=== PATIENT | female | born 1965 | race Caucasian/White ===

== ENCOUNTER 2020-08-21 10:21 | Observation (INO) | payer BC ==
[~2020-08-21] VITALS: Ht 160 cm; Wt 74.8 kg
--- NOTE | 2020-08-21 11:20 | Emergency Department Note ---
History of Present Illnes History of Present Illness Chief Complaint: Chest Pain History of Present Illness This is a 55 year old female arrived to the ED with intermittent chest pain sin ce yesterday at 4 PM. Patient states chest pain is substernal radiating to her back. Patient denies any shortness of breath cough or fever . Historian: Patient Arrival Mode: Car Onset (how long ago): day(s) Radiation: Reports non-radiation Severity: mild Onset quality: gradual Duration (how long): hour(s) Timing of current episode: constant Chronicity: new Relieving factors: none Exacerbating factors: none Past Medical/Family History Physician Review I have reviewed the patient's past medical and family history. Any updates have been documented here. Past Medical History Recent Fever: No Clinical Suspicion of Infectio: No New/Unexplained Change in Ment: No Past Medical History: Hypertension, GERD Past Surgical History: Cholecysctectomy, Hysterectomy Social History Smoking Cessation: Never Smoker Counseling Performed: No Review of Systems Review of Systems Constitutional: Reports no symptoms EENTM: Reports no symptoms Cardiovascular: Reports no symptoms Respiratory: Reports no symptoms Gastrointestinal: Reports no symptoms Genitourinary: Reports no symptoms Musculoskeletal: Reports no symptoms Integumentary: Reports no symptoms Neurological: Reports no symptoms Psychological: Reports no symptoms Endocrine: Reports no symptoms Hematological/Lymphatic: Reports no symptoms Physical Exam Related Data Allergies: Coded Allergies: No Known Allergies (Unverified , 08/21/20) Triage Vital Signs Vital Signs Date Time Temp Pulse Resp B/P (MAP) Pulse Ox O2 Delivery O2 Flow Rate FiO2 08/21/20 10:36 98.3 85 20 164/76 99 Room Air Vital signs reviewed: Yes Physical Exam CONSTITUTIONAL Constitutional: Present well-developed, Present well-nourished HENT HENT: Present normocephalic, Present atraumatic, Present oropharynx clear/moist, Present nose normal HENT L/R: Present left ext ear normal, Present right ext ear normal EYES Eyes: Reports PERRL, Reports conjunctivae normal NECK Neck: Present ROM normal PULMONARY Pulmonary: Present effort normal, Present breath sounds normal CARDIOVASCULAR Cardiovascular: Present regular rhythm, Present heart sounds normal, Present capillary refill normal, Present normal rate GASTROINTESTINAL Abdominal: Present soft, Present nontender, Present bowel sounds normal GENITOURINARY Genitourinary: Present exam deferred SKIN Skin: Present warm, Present dry MUSCULOSKELETAL Musculoskeletal: Present ROM normal NEUROLOGICAL Neurological: Present alert, Present oriented x 3, Present no gross motor or sensory deficits PSYCHOLOGICAL Psychological: Present mood/affect normal, Present judgement normal Results Laboratory Lab results reviewed: Yes Laboratory comments Laboratory Tests Test 08/21/20 11:20 White Blood Count 12.82 x10e3/uL (4.8-10.8) Red Blood Count 4.85 x10e6/uL (3.6-5.1) Hemoglobin 14.6 g/dL (12.0-16.0) Hematocrit 43.2 % (34.2-44.1) Mean Corpuscular Volume 89.1 fL (81-99) Mean Corpuscular Hemoglobin 30.1 pg (28-32) Mean Corpuscular Hemoglobin Concent 33.8 g/dL (31-35) Red Cell Distribution Width 11.9 % (11.7-14.4) Platelet Count 331 x10e3/uL (140-360) Neutrophils (%) (Auto) 83.1 % (38.7-80.0) Lymphocytes (%) (Auto) 8.3 % (18.0-39.1) Monocytes (%) (Auto) 7.6 % (4.4-11.3) Eosinophils (%) (Auto) 0.2 % (0.0-6.0) Basophils (%) (Auto) 0.3 % (0.0-1.0) Neutrophils # (Auto) 10.7 (2.1-6.9) Lymphocytes # (Auto) 1.1 (1.0-3.2) Monocytes # (Auto) 1.0 (0.2-0.8) Eosinophils # (Auto) 0.0 (0.0-0.4) Basophils # (Auto) 0.0 (0.0-0.1) Absolute Immature Granulocyte (auto 0.06 x10e3/uL (0-0.1) Sodium Level 138 mmol/L (136-145) Potassium Level 3.8 mmol/L (3.5-5.1) Chloride Level 99 mmol/L (98-107) Carbon Dioxide Level 26 mmol/L (22-29) Anion Gap 16.8 mmol/L (8-16) Blood Urea Nitrogen 9 mg/dL (7-26) Creatinine 0.89 mg/dL (0.57-1.11) Estimat Glomerular Filtration Rate > 60 ML/MIN (60-) BUN/Creatinine Ratio 10 (6-25) Glucose Level 102 mg/dL (74-118) Calcium Level 10.0 mg/dL (8.4-10.2) Total Bilirubin 0.9 mg/dL (0.2-1.2) Aspartate Amino Transf (AST/SGOT) 146 IU/L (5-34) Alanine Aminotransferase (ALT/SGPT) 115 IU/L (0-55) Alkaline Phosphatase 114 IU/L (40-150) Creatine Kinase 44 IU/L (29-168) Creatine Kinase MB 0.60 ng/mL (0-5.0) Troponin I 0.010 ng/mL (0-0.300) B-Type Natriuretic Peptide 30.1 pg/mL (0-100) Total Protein 8.2 g/dL (6.5-8.1) Albumin 5.0 g/dL (3.5-5.0) Globulin 3.2 g/dL (2.3-3.5) Albumin/Globulin Ratio 1.6 (0.8-2.0) Lipase 18 U/L (8-78) Diagnostics Tests Diagnostic test(s) reviewed: Yes Procedures 12 Lead ECG Interpretation ECG Interpretation : ECG: ECG 1 Prior ECG tracings: reviewed Rhythm: sinus rhythm Rate: normal QRS axis: left ST segments normal: Yes T waves normal: Yes Clinical Impression: non-specific ECG Assessment & Plan Medical Decision Making MDM 55-year-old arrives to the ED with atypical chest pain. Patient normal EKG and cardiac markers, admitted for serial troponin Assessment & Plan Final Impression: (1) Chest pain Depart Disposition: ADMITTED Last Vital Signs Date Time Temp Pulse Resp B/P (MAP) Pulse Ox O2 Delivery O2 Flow Rate FiO2 08/21/20 10:36 98.3 85 20 164/76 99 Room Air ZACH FITCHDO Aug 21, 2020 11:19
[2020-08-21 11:44] LABS: BASOPHILS % 0.3 % (0.0-1.0); EOSINOPHILS % 0.2 % (0.0-6.0); HEMATOCRIT 43.2 % (34.2-44.1); HEMOGLOBIN 14.6 g/dL (12.0-16.0); LYMPHOCYTES # (AUTO) 1.1 (1.0-3.2); LYMPHOCYTES % 8.3 % (18.0-39.1); MEAN CORPUSCULAR HEMOGLOBIN 30.1 pg (28-32); MEAN CORPUSCULAR HGB CONC 33.8 g/dL (31-35); MEAN CORPUSCULAR VOLUME 89.1 fL (81-99); MONOCYTES % 7.6 % (4.4-11.3); NEUTROPHILS # (AUTO) 10.7 (2.1-6.9); NEUTROPHILS % 83.1 % (38.7-80.0); PLATELET COUNT 331 x10e3/uL (140-360); RED BLOOD COUNT 4.85 x10e6/uL (3.6-5.1); RED CELL DISTRIBUTION WIDTH 11.9 % (11.7-14.4)
[2020-08-21 12:02] LABS: ALANINE AMINOTRANSFERASE 115 IU/L (0-55); ALBUMIN/GLOBULIN RATIO 1.6 (0.8-2.0); ALKALINE PHOSPHATASE 114 IU/L (40-150); ANION GAP 16.8 mmol/L (8-16); BLOOD UREA NITROGEN 9 mg/dL (7-26); BUN/CREATININE RATIO 10 (6-25); CARBON DIOXIDE 26 mmol/L (22-29); CHLORIDE 99 mmol/L (98-107); CREATINE KINASE 44 IU/L (29-168); CREATININE, SERUM 0.89 mg/dL (0.57-1.11); EST GLOMERULAR FILTRATION RATE > 60 ML/MIN (60-); GLUCOSE 102 mg/dL (74-118); POTASSIUM 3.8 mmol/L (3.5-5.1); SODIUM 138 mmol/L (136-145)
--- NOTE | 2020-08-21 12:30 | Diagnostic Imaging Report ---
EXAMINATION: CHEST SINGLE (PORTABLE) INDICATION: Chest pain COMPARISON: None FINDINGS: LINES/TUBES:None LUNGS:The lungs are well-inflated. No focal consolidation or pulmonary edema. PLEURA:No pleural effusion or pneumothorax. MEDIASTINUM:The cardiomediastinal silhouette appears normal in size and shape. BONES/SOFT TISSUES:No acute osseous injury. ABDOMEN:No free air under the diaphragm. IMPRESSION: No focal pneumonia or pulmonary edema. Signed by: Shaheed Vila MD on 08/21/2020 12:27 PM
[2020-08-21] MEDS ORDERED: SODIUM CHLORIDE 0.9% 50ML 50 ML ONE (16:13)
[2020-08-21] MEDS ORDERED: IOPAMIDOL 370 MG/ML 200 ML INFUS..BTL INJ ONE (16:13)
--- NOTE | 2020-08-21 17:01 | Diagnostic Imaging Report ---
EXAM: CT Abdomen and Pelvis WITH contrast INDICATION: Elevated liver function tests. COMPARISON: None. TECHNIQUE: Abdomen and pelvis were scanned utilizing a multidetector helical scanner from the lung base to the pubic symphysis after administration of IV contrast. Coronal and sagittal reformations were obtained. Routine protocol was performed. Scan was performed when during portal venous phase. IV CONTRAST: 100 mL of Isovue 370 ORAL CONTRAST: None COMPLICATIONS: None RADIATION DOSE: Total DLP: 534.01 mGy*cm Estimated effective dose: (DLP x 0.015 x size factor) mSv CTDIvol has been reviewed. It is below the limits set by the Radiation Protocol Committee (RPC). Dose modulation, iterative reconstruction, and/or weight based adjustment of the mA/kV was utilized to reduce the radiation dose to as low as reasonably achievable. FINDINGS: LINES and TUBES: None. LOWER THORAX: Unremarkable HEPATOBILIARY: The liver is diffuse hypodense compared to the spleen, consistent with diffuse hepatic diffuse hepatic steatosis. No focal hepatic lesions. No biliary ductal dilation. GALLBLADDER: There are cholecystectomy clips. SPLEEN: No splenomegaly. PANCREAS: No focal masses or ductal dilatation. ADRENALS: No adrenal nodules KIDNEYS/URETERS: Kidneys enhance symmetrically. No hydronephrosis. No cystic or solid mass lesions. No stones. GI TRACT: There is a small hiatal hernia. There is mild mucosal edema of the gastric antrum. No abnormal distention, wall thickening, or evidence of bowel obstruction. The appendix is not seen in isolation, however, no secondary signs of appendicitis. PELVIC ORGANS/BLADDER: There are surgical clips in the pelvis, likely contraceptive clips. The urinary bladder has a normal wall contour. No large pelvic mass, free air or free fluid. LYMPH NODES: No lymphadenopathy. VESSELS: Scattered mild arterial vascular calcifications. PERITONEUM / RETROPERITONEUM: No free air or fluid. BONES: There are degenerative changes in the spine. SOFT TISSUES: Unremarkable. IMPRESSION: 1. Mild mucosal edema of the gastric antrum which can be suggestive of mild gastritis. 2. Hepatic steatosis. 3. Small hiatal hernia. Signed by: Aristeo Barnett MD on 08/21/2020 4:58 PM
--- NOTE | 2020-08-21 19:00 | NUR ---
Handoff report received from Delvis MCCLURE. Pt awake & alert, no complaint of pain at this time.
[2020-08-21 19:30] LABS: CREATINE KINASE MB 0.5 ng/mL (0-5.0)
[2020-08-21] MEDS ORDERED: ONDANSETRON HCL INJ 2MG/ML 2ML 2 MG/ML VIAL IV PRN (19:45)
[2020-08-21] MEDS ORDERED: HYDRALAZINE HCL 20 MG/ML VIAL IV PRN (19:45)
[2020-08-21] MEDS ORDERED: ACETAMINOPHEN/CODEINE 300MG - 30MG TAB PO PRN (19:45)
[2020-08-21] MEDS ORDERED: ACETAMINOPHEN 325 MG TAB PO PRN (19:45)
[2020-08-21 20:00] VITALS: BP 118/74
--- NOTE | 2020-08-21 20:00 | NUR ---
pt received from er via wheelchair. no ss of distress noted upon admission. no co pain at time. tele in place. pt made comfortable and oriented to rm. hx obtained at time. will cont to follow poc. call mobley within reach.
[2020-08-21 21:09] VITALS: BP 118/74
[2020-08-21] MEDS ORDERED: DEXILANT60 MG PO (22:44)
[2020-08-21] MEDS ORDERED: LISINOPRIL5 MG PO (22:44)
[2020-08-21] MEDS ORDERED: HYDROCHLOROTHIA25 MG PO (22:44)
[2020-08-22] VITALS: BP 99/72
[2020-08-22 04:10] VITALS: BP 110/68
[2020-08-22 04:28] LABS: BASOPHILS # (AUTO) 0.1 (0.0-0.1); BASOPHILS % 0.6 % (0.0-1.0); EOSINOPHILS # (AUTO) 0.1 (0.0-0.4); EOSINOPHILS % 1.8 % (0.0-6.0); HEMATOCRIT 43.6 % (34.2-44.1); HEMOGLOBIN 14.4 g/dL (12.0-16.0); LYMPHOCYTES # (AUTO) 2.2 (1.0-3.2); LYMPHOCYTES % 27.9 % (18.0-39.1); MEAN CORPUSCULAR HEMOGLOBIN 30.1 pg (28-32); MEAN CORPUSCULAR VOLUME 91.2 fL (81-99); MONOCYTES # (AUTO) 0.9 (0.2-0.8); MONOCYTES % 10.8 % (4.4-11.3); NEUTROPHILS # (AUTO) 4.7 (2.1-6.9); NEUTROPHILS % 58.5 % (38.7-80.0); PLATELET COUNT 301 x10e3/uL (140-360); RED BLOOD COUNT 4.78 x10e6/uL (3.6-5.1); RED CELL DISTRIBUTION WIDTH 11.9 % (11.7-14.4)
[2020-08-22 04:45] LABS: ALBUMIN 4.8 g/dL (3.5-5.0); ALBUMIN/GLOBULIN RATIO 1.5 (0.8-2.0); CALCIUM 9.8 mg/dL (8.4-10.2); CREATININE, SERUM 0.96 mg/dL (0.57-1.11)
[2020-08-22 05:05] LABS: THYROID STIMULATING HORMONE 1.491 uIU/mL (0.350-4.940)
[2020-08-22 05:06] LABS: CHOL/HDL RATIO 2.9 (3.0-3.6)
[2020-08-22 05:14] LABS: CREATINE KINASE MB 0.5 ng/mL (0-5.0)
[2020-08-22] MEDS: PANTOPRAZOLE SOD 40 MG TABEC PO SCH ×2 (05:31→07:30)
--- NOTE | 2020-08-22 06:13 | NUR ---
pt showered. tele reapplied. no ss of distress. call mobley within reach.
--- NOTE | 2020-08-22 07:00 | NUR ---
RCD PT AT BED PT IS ALERT AND ORIENTED RESTING ON BED IV PATENT BED LOW AND LOCKED CALL LIGHT IN REACH
[2020-08-22 08:30] VITALS: BP 117/73
[2020-08-22 08:43] VITALS: BP 117/73
[2020-08-22] MEDS ORDERED: ASPIRIN 81 MG CHEW TAB PO SCH (09:00)
[2020-08-22] MEDS ORDERED: ASPIRIN CHEW81 MG PO (10:27)
--- NOTE | 2020-08-22 11:05 | NUR ---
pt went home in safe condition with her
[2020-08-22 11:50] VITALS: BP 119/78
--- NOTE | 2020-08-23 04:22 | Discharge Summary ---
ADMISSION DIAGNOSES: 1. Chest pain. 2. Hypertension. 3. Gastroesophageal reflux disease. 4. Transaminitis. DISCHARGE DIAGNOSES: 1. Chest pain. 2. Hypertension. 3. Gastroesophageal reflux disease. 4. Transaminitis. 5. Rule out acute coronary syndrome. HISTORY: Hypertension, GERD, upper esophageal sphincter problem. SURGICAL HISTORY: Cholecystectomy, hysterectomy, right lung wedge resection. FAMILY HISTORY: The patient's daughter has diabetes. Both of the patient's grandmother and grandfather have cancer. Both of her grandmothers have stroke. SOCIAL HISTORY: Occasional alcohol use. HOSPITAL COURSE: A 55-year-old female, admits with complaints of epigastric abdominal pain since Thursday. The pain is described as a spasm and radiates to her back and right shoulder. She had associated nausea and shortness of breath. The pain is intermittent. Symptoms worsen with coffee. On admission, troponins were negative x3. Chest x-ray was negative. TSH was within normal limits as well as the lipid panel. CT of the abdomen and pelvis showed mild mucosal edema of the gastric antrum, which can be suggestive of mild gastritis, small sliding hiatal hernia, and hepatic steatosis. Echo showed an EF of about 50%. The patient says that she already follows a GI doctor outpatient as she has bad acid reflux and issues with her esophageal sphincter. Since ACS was ruled out and other labs were within normal limits, she is tolerating diet, she is ready to discharge home. She was advised to follow up with primary care and her outpatient GI doctor in 1 to 2 weeks. The patient understands instructions and agrees to plan. Dictated by Keren Lee NP MD DONTAE Juarez/MODL /[id number]
--- OUTSIDE RECORDS SUMMARY | 2020-08-26 15:14 | XMS REPORT | Clinical Summary ---
Author Author BLAISE ADITU SAS Keyword 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 tablet Active omeprazole (PRILOSEC) 40 Take 40 mg by 0 MG capsule mouth daily. Active multivitamin per tablet Take 1 tablet 0 by mouth daily. Active fluticasone propionate Inhale 1 puff 0 (FLOVENT HFA) 110 by mouth via mcg/actuation inhaler inhaler 2 (two) times daily as needed. Active albuterol HFA (VENTOLIN Inhale 1 puff 0 HFA) 90 mcg/actuation by mouth via inhaler inhaler every 6 (six) hours as needed for Wheezing. Active hydroCHLOROthiazide Take 25 mg by 0 (HYDRODIURIL) 25 MG mouth daily. tablet 02/08/2020 Discontinued CHOLECALCIFEROL, VITAMIN Take by 0 D3, ORAL mouth. 02/08/2020 Discontinued ferrous sulfate 142 mg Take 142 mg 0 (45 mg iron) TbER by mouth daily. 02/08/2020 Discontinued hydrochlorothiazide Take 12.5 mg 0 (HYDRODIURIL) 12.5 MG by mouth tablet daily. Active Problems Problem Noted Date Nodule of right lung 02/09/2014 Lung nodule 02/08/2014 Pulmonary nodules/lesions, multiple 02/01/2014 SOB (shortness of breath) 02/01/2014 Cough 02/01/2014 Encounters Care Team Description Date Type Specialty Samira Rivera MD UPPER ENDOSCOPY,BIOPSY 02/08/2020 Surgery Gastroenterology Luis Alberto Dixon CRNA 02/08/2020 Anesthesia Gastroenterology Event Samira Rivera MD 02/08/2020 Hospital Gastroenterology Encounter 02/07/2020 Hospital Pre-Admission Testi ng Encounter after 08/21/2019 Family History Medical History Relation Name Comments Hypertension Mother Relation Name Status Comments Mother Social History Date Tobacco Use Types Packs/Day Years Used Quit: 12/16/2013 Former Smoker 1 31 Smokeless Tobacco: Never Used Alcohol Use Drinks/Week oz/Week Comments Yes 20 Standard 14.4 drinks or equivalent 4 Shots of liquor Sex Assigned at Date Recorded Not on file Industry Job Start Date Occupation Not on file Not on file Not on file Travel End Travel History Travel Start No recent travel history available. Last Filed Vital Signs Time Taken Vital Sign Reading 02/08/2020 10:44 AM CDT Blood Pressure 107/68 02/08/2020 10:44 AM CDT Pulse 66 02/08/2020 10:44 AM CDT Temperature 36.4 C (97.5 F) 02/08/2020 10:44 AM CDT Respiratory Rate 18 02/08/2020 10:44 AM CDT Oxygen Saturation 99% - Inhaled Oxygen - Concentration 02/08/2020 9:12 AM CDT Weight 70.9 kg (156 lb 3.2 oz) 02/08/2020 9:12 AM CDT Height 160 cm (5' 3") 02/08/2020 9:12 AM CDT Body Mass Index 27.67 Plan of Treatment Health Maintenance Due Date Last Done Comments BREAST CANCER SCREENING 1965 CERVICAL CANCER SCREENING 1986 PAP ONLY (Age 21-65) INFLUENZA VACCINE (#1) 2020 09/12/2015, 05/2014 COLON CANCER SCREENING 02/07/2030 02/08/2020 COLONOSCOPY Procedures Comments Procedure Name Priority Date/Time Associated Diag nosis REPORT OF PROCEDURE - 02/08/2020 ENDOSCOPY URL 10:14 AM CDT REPORT OF PROCEDURE - 02/08/2020 ENDOSCOPY URL 9:58 AM CDT TISSUE EXAM AP Routine 02/08/2020 9:54 AM CDT UPPER ENDOSCOPY,BIOPSY 02/08/2020 Screen for col on cancer 9:45 AM CDT Gastroesophageal reflux disease without esophagitis COLONOSCOPY 02/08/2020 Screen for colon ca ncer 9:45 AM CDT Gastroesophageal reflux disease without esophagitis after 08/21/2019 Results * REPORT OF PROCEDURE - ENDOSCOPY URL (02/08/2020 10:14 AM CDT) Narrative Performed At This result has an attachment that is n ot available. * REPORT OF PROCEDURE - ENDOSCOPY URL (02/08/2020 9:58 AM CDT) Narrative Performed At This result has an attachment that is n ot available. * Tissue Exam (02/08/2020 9:54 AM CDT) Case Report Surgical Pathology ON LICENSE OF [facility] TH Report [facility] Case: [id number] Authorizing Provider:Samira Rivera MD Collected: 02/08/2020 0954 Ordering Location: [facility] Endoscopy Received: 02/08/2020 1141 Services Pathologist: Flaco Paris MD Specimens: A) - Biopsy, Gastric, RANDOM BX B) - Biopsy, Gastroesophageal Junction, BX EVALUATE FOR DAVIDSON'S DIAGNOSIS A. STOMACH, RANDOM BIOPSIES: [facility] - ANTRAL MUCOSA WITH [facility] REACTIVE GASTROPATHY AND MILD CHRONIC INACTIVE GASTRITIS - OXYNTIC MUCOSA WITH NO SIGNIFICANT DIAGNOSTIC ABNORMALITY - NEGATIVE FOR HELICOBACTER PYLORI ORGANISMS BY WARTHIN STARRY STAIN - NEGATIVE FOR INTESTINAL METAPLASIA, DYSPLASIA, MALIGNANCY B. GASTROESOPHAGEAL JUNCTION, BIOPSY: - JUNCTIONAL MUCOSA WITH REFLUX ESOPHAGITIS - NEGATIVE FOR INTESTINAL METAPLASIA/ DAVIDSON'S ESOPHAGUS - NEGATIVE FOR DYSPLASIA/ MALIGNANCY Signing Pathologist Direct Phone Line: [phone] COMMENT [id number] [facility] H [id number] [facility] CPT Code(s) 79902R0 [facility] H [id number] [facility] CLINICAL HISTORY Preop diagnosis: Screening [facility] for colon cancer. [facility] Gastroesophageal reflux disease SPECIMEN SOURCE A. Random gastric biopsy; B. [facility] Gastroesophageal junction [facility] junction GROSS DESCRIPTION A. Received in formalin labeled "random gastric [facility] biopsy" is a 0.6 x 0.4 x 0.3 cm aggregate of june tissue fragment submitted entirely in a single cassette A1. B. Received in formalin labeled "gastroesophageal junction biopsy to evaluate for Davidson's" are two fragments of june-white tissue, 0.3 x 0.2 x 0.2 cm in aggregate, submitted entirely in a single cassette B after filtration. YY/pl MICROSCOPIC DESCRIPTION Performed. [facility] SPECIAL STUDIES The interpretation of this [facility] case included the use of [facility] immunohistochemistry or special stains. Control Slides Examined: In-house known positive controls were evaluated along with the test tissue. These control slides run alongside of the patients sample show appropriate staining. Internal positive and negative controls when available are evaluated Immunohistochemistry technical testing was performed at [facility], Pathology Laboratory where it was developed and its performance characteristics were determined. It has not been cleared or approved by the U.S. Food and Drug Administration. The FDA has determined that such clearance or approval is not necessary. The test is used for clinical purposes. It should not be regarded as investigational or for research. This laboratory is certified under the Clinical Laboratory Improvement Amendments of 1988 (CLIA-88) as qualified to perform high complexity clinical laboratory testing. Specimen Tissue Tissue - Biopsy, Gastroesophageal Junction Performing Organization Address City/State/Zipcode Ph one Number [facility] [address] [place], [place] [address] [facility] after 08/21/2019 Insurance Payer Benefit Subscriber ID Type Phone Address Plan / Group BLUE CROSS/BLUE SHIELD BCBS PPO xxxxxxxxxxxx PPO [id number] [place] [address] CHOICE Lala gladys (Home) [place], [place] [phone] (Work) Advance Directives For more information, please contact: [facility] [address] [place] [address] Date Inactivated Comments Code Status Date Activated 02/10/2014 4:26 PM All possible means of suppor t, including: cardiac massage, mechanical ventilation, and defibrillation will be used to support life. Code ONE 02/08/2014 11:04 AM 02/08/2014 11:04 AM All possible means of suppor t including;cardiac massage, mechanical ventilation, and defibrillation will be used to support life. Code ONE 02/08/2014 6:24 AM
--- OUTSIDE RECORDS SUMMARY | 2020-08-26 15:15 | XMS REPORT | Continuity of Care Document ---
Author Author [facility] t Organization [facility] Address [address] [place] [address] Phone Unavailable Care Team Providers Care Multi Punch Operator Name Role Phone oTni TAYLOR PCP BRYNN BAUTISTA Attphys Unavailable GORDON RUGGIERO Attphys Unavailable Elizabeth YI, Brynn Attphys El Perdomo NP Attphys Hiro RIVERAEAL Attphys Unavailable Nicole YI, Justin Hogan Attphys Drew Dixon CRNA Attphys [phone] GORDON RUGGIERO Admphys Unavailable Hiro RIVERA Admphys Unavailable Payers Payer Name Policy Type Policy Number Effective Date Expiration Date S mary ann [place] PPO POS [id number] 2019 00:00:00 [employer] [place] P[place] [id number] [facility] BLUE CROSS/BLUE SHIELDBCBS PPO POS EPO C [id number] [id number], [place] [address] xxxxxxxxxxxx [facility] Problems Condition Name Condition Details Condition Category Status Onset Date Resolution Date Last Treatment Date Treating Clinician Comments Source Nodule of right lung Nodule of right lung Disease Active 00:00:00 [facility] Lung nodule Lung nodule Disease Active 2014-02-08 00:00:00 [facility] Pulmonary nodules/lesions, multiple Pulmonary nodules/lesions, m ultiple Disease Active 2014-02-01 00:00:00 [facility] SOB (shortness of breath) SOB (shortness of breath) Disease Ac tive 2014-02-01 00:00:00 [facility] Cough Cough Disease Active 2014-02-01 00:00:00 [facility] Chest pain Problem Active [facility] Allergies, Adverse Reactions, Alerts Allergy Name Allergy Type Status Severity Reaction(s) Onset Date Inacti ve Date Treating Clinician Comments Source No Known Allergies DA Active U 2020-03-28 00:00:00 [facility] Family History Family Member Diagnosis Comments Start Date Stop Date Source Maternal grandfather Head and neck cancer MD Mercado Paternal grandfather Lung cancer MD Mercado Paternal grandmother Brain cancer MD Mercado Natural mother Hypertension [facility] Social History Social Habit Start Date Stop Date Quantity Comments Source Sex Assigned At [facility] Tobacco use and exposure 2020-02-18 00:00:00 2020-02-18 00:00:00 Casey Mercado Alcohol intake 2020-02-18 00:00:00 2020-02-18 00:00:00 Current drinker of alcohol (finding) MD Mercado Cigarettes smoked current (pack per day) - Reported 00:00:00 2020-02-08 00:00:00 [facility] Cigarette pack-years 2020-02-08 00:00:00 2020-02-08 00:00:00 [facility] History of tobacco use 2013-12-16 00:00:00 Current smoker MD Mercado Smoking Status Start Date Stop Date Source Former smoker 2020-02-08 00:00:00 2020-02-08 00:00:00 [facility] Medications Ordered Medication Name Filled Medication Name Start Date Stop Da te Current Medication? Ordering Clinician Indication Dosage Frequency Signature (SIG) Comments Components Source Aspirin (Aspirin Chew) 81 Mg CHEW Aspirin (Aspirin Chew) 81 Mg CHEW 2020-08-22 10:27:00 Yes 81 Daily [facility] multivitamin (THERAGRAN) tablet 2020-02-17 19:36:22 Yes 1{tbl} Take 1 tablet by mouth daily. MD Mercado dexlansoprazole (Dexilant) 60 mg capsule 2020-01 00:00:00 2021-02-17 04:59:00 No Gastro-esophageal reflux disease with esophagit is 60mg Take 1 capsule (60 mg) by mouth daily. MD Mitchel zavala CHOLECALCIFEROL, VITAMIN D3, ORAL 2020-02-08 10:15:38 2019 00:00:00 No Take by mouth. [facility] ferrous sulfate 142 mg (45 mg iron) TbER 2020-01 10:15:2020-02-08 00:00:00 No 142mg QD Take 142 mg by mouth daily. [facility] hydrochlorothiazide (HYDRODIURIL) 12.5 MG tablet 2020-02-08 10:15:2020-02-08 00:00:00 No 12.5mg QD Take 12.5 mg by mout h daily. [facility] multivitamin per tablet 2020-02-07 12:24:19 Yes 1{tbl} QD Take 1 tablet by mouth daily. [facility] fluticasone propionate (FLOVENT HFA) 110 mcg/actuation inhal er 2020-02-07 12:24:19 Yes 1{puff} Inhale 1 p uff by mouth via inhaler 2 (two) times daily as needed. [facility] albuterol HFA (VENTOLIN HFA) 90 mcg/actuation inhaler 2020-02-07 12:24:19 Yes 1{puff} Inhale 1 puff b y mouth via inhaler every 6 (six) hours as needed for Wheezing. [facility] hydroCHLOROthiazide (HYDRODIURIL) 25 MG tablet 2020-02-07 12:24: 19 Yes 25mg QD Take 25 mg by mouth daily. [facility] omeprazole (PriLOSEC) 40 MG capsule 2020-01-16 00:00:0 0 2020-02-17 00:00:00 No daily. MD Mercado hydroCHLOROthiazide (HYDRODIURIL) 25 mg tablet 2019-12-29 00:00: 00 Yes daily. MD Mercado lisinopril (PRINIVIL,ZESTRIL) 5 mg tablet 2017-06-12 00:00:00 Yes daily. MD Mercado lisinopril (PRINIVIL,ZESTRIL) 5 MG tablet 2014-01-23 11:55:39 Yes 5mg QD Take 5 mg by mouth daily. [facility] omeprazole (PRILOSEC) 40 MG capsule 2014-01-23 11:55:39 Yes 40mg QD Take 40 mg by mouth daily. [facility] Dexlansoprazole (Dexilant) 60 Mg CAP. Dexlansopra zole (Dexilant) 60 Mg CAP. Yes 1 Daily [facility] Hydrochlorothiazide Hydrochlorothiazide Yes 25 Daily [facility] Lisinopril Lisinopril Yes 5 Daily [facility] Vital Signs Vital Name Observation Time Observation Value Comments Source BMI (Body Mass Index) 2020-08-22 10:27:00 29.2 kg/m2 [facility] Weight 2020-08-22 10:25:00 165 [lb_av] [facility] Body Temperature 2020-08-22 08:43:00 98.4 [degF] [facility] Systolic blood pressure 2020-02-17 19:25:37 126 mm[Hg] MD Mercado Diastolic blood pressure 2020-02-17 19:25:37 80 mm[Hg] MD Mercado Heart rate 2020-02-17 19:25:37 80 /min MD Mitchel zavala Body temperature 2020-02-17 19:25:37 37.11 Bethany MD Una espinoza Respiratory rate 2020-02-17 19:25:37 18 /min MD Una espinoza Body height 2020-02-17 19:25:37 158.8 cm MD Mitchel zavala Body weight 2020-02-17 19:25:37 73.8 kg MD [place]on son BMI 2020-02-17 19:25:37 29.27 kg/m2 MD Mitchel zavala Oxygen saturation in Arterial blood by Pulse oximetry 02-16 19:25:37 96 /min MD Mercado Systolic blood pressure 2020-02-08 10:44:00 107 mm[Hg] [facility] Diastolic blood pressure 2020-02-08 10:44:00 68 mm[Hg] [facility] Heart rate 2020-02-08 10:44:00 66 /min [facility] Body temperature 2020-02-08 10:44:00 36.39 Bethany [facility] Respiratory rate 2020-02-08 10:44:00 18 /min [facility] Oxygen saturation in Arterial blood by Pulse oximetry 02-07 10:44:00 99 /min [facility] Body height 2020-02-08 09:12:00 160 cm [facility] Body weight Measured 2020-02-08 09:12:00 70.852 kg [facility] BMI 2020-02-08 09:12:00 27.67 kg/m2 [facility] Procedures Procedure Date / Time Performed Performing Clinician [facility] e Computed tomography of abdomen and pelvis with contrast 00:00:00 [facility] REPORT OF PROCEDURE - ENDOSCOPY URL 2020-02-08 10:14:33 [facility] REPORT OF PROCEDURE - ENDOSCOPY URL 2020-02-08 09:58:25 [facility] TISSUE EXAM 2020-02-08 09:54:00 [facility] COLONOSCOPY 2020-02-08 09:45:00 [facility] UPPER ENDOSCOPY,BIOPSY 2020-02-08 09:45:00 [facility] Plan of Care Planned Activity Planned Date Details Comments Source Future Scheduled Test 2030-02-07 00:00:00 Screening for rayna gnant neoplasm of colon (procedure) [code = 297336870] [facility] Future Scheduled Test 2020-07-31 00:00:00 INFLUENZA VACCINE (#1) [code = INFLUENZA VACCINE (#1)] [facility] Future [facility] 00:00:00 Screening for raynachente siddiqi neoplasm of cervix (procedure) [code = 219951072] [facility] Future Scheduled Test 1965 00:00:00 Screening for rayna gnlucretia neoplasm of breast (procedure) [code = 556660178] [facility] Instructions Chest Pain - Chest Wall [facility] Encounters Start Date/Time End Date/Time Encounter Type Admission Type [facility] Care Department Encounter ID Source 2020-10-11 00:00:00 2020-10-11 00:00:00 Outpatient BRYNN BETTS MDA, MDA [id number] MD Mercado 2020-10-04 00:00:00 2020-10-04 00:00:00 Outpatient MP BAUTISTA BRYNN QUINONEZ MDA [id number] [place] 2020-08-21 14:03:00 2020-08-22 11:05:00 Discharged Inpatient (obs) 1 GORDON RUGGIERO [facility] [id number] [facility] Results Test Description Test Time Test Comments Results Result Comments Source Blood leukocytes automated count (number/volume) 2020-08-22 04:21:00 Test Item White Blood Count (test code = 6690-2) 7.99 4.8-10.8 [facility] automated count (number/volume)2020-08-22 04:21:00* Test Item Value Reference Range Interpretation Comments Red Blood Count (test code = 789-8) 4.78 3.6-5.1 [facility] hemoglobin measurement (moles/volume)2020-08-22 04:21:00* Test Item Value Reference Range Interpretation Comments Hemoglobin (test code = 03233-7) 14.4 12.0-16.0 [facility] blood hematocrit (volume fraction)2020-08-22 04:21:00* Test Item Value Reference Range Interpretation Comments Hematocrit (test code = 4544-3) 43.6 34.2-44.1 [facility] erythrocyte mean corpuscular bfxzio9513-13-93 04:21:00* Test Item Value Reference Range Interpretation Comments Mean Corpuscular Volume (test code = 787-2) 91.2 81-99 [facility] erythrocyte mean corpuscular hemoglobin (mass per erythrocyte)2020-08-22 04:21:00* Test Item Value Reference Range Interpretation Comments Mean Corpuscular Hemoglobin (test code = 785-6) 30.1 28-32 [facility] erythrocyte mean corpuscular hemoglobin concentration measurement (mass/volume)2020-08-22 04:21:00* Test Item Value Reference Range Interpretation Comments Mean Corpuscular Hemoglobin Concent (test code = 786-4) 33.0 31-35 [facility] TexasRDW OfuOd-Dzg5582-80-23 04:21:00* Test Item Value Reference Range Interpretation Comments Red Cell Distribution Width (test code = 67908-2) 11.9 11.7 -14.4 [facility] blood platelet count (count/volume)2020-08-22 04:21:00* Test Item Value Reference Range Interpretation Comments Platelet Count (test code = 777-3) 301 140-360 [facility] blood segmented neutrophil count as percentage of total lhijnrkafl1954-28-93 04:21:00* Test Item Value Reference Range Interpretation Comments Neutrophils (%) (Auto) (test code = 98128-1) 58.5 38.7-80.0 [facility] blood lymphocyte count as percentage ot total xchuabfmya7352-78-93 04:21:00* Test Item Value Reference Range Interpretation Comments Lymphocytes (%) (Auto) (test code = 736-9) 27.9 18.0-39.1 [facility] blood monocyte count as percentage of total nnbsjswxfv4264-52-94 04:21:00* Test Item Value Reference Range Interpretation Comments Monocytes (%) (Auto) (test code = 5905-5) 10.8 4.4-11.3 [facility] blood eosinophil count as percentage of total nnzkwxmxgu6322-75-79 04:21:00* Test Item Value Reference Range Interpretation Comments Eosinophils (%) (Auto) (test code = 713-8) 1.8 0.0-6.0 [facility] blood basophil count as percentage of total mahepaoalm5503-14-73 04:21:00* Test Item Value Reference Range Interpretation Comments Basophils (%) (Auto) (test code = 706-2) 0.6 0.0-1.0 [facility] TexasFluoroscopic procedure less than one hour aocetprt6904-11-71 04:21:00* Test Item Value Reference Range Interpretation Comments IM GRANULOCYTES % (test code = IM GRANULOCYTES %) 0.4 0.0- 1.0 [facility] blood neutrophil count 2020-08-22 04:21:00* Test Item Value Reference Range Interpretation Comments Neutrophils # (Auto) (test code = 751-8) 4.7 2.1-6.9 [facility] lymphocytes count (number/volume) 2020-08-22 04:21:00* Test Item Value Reference Range Interpretation Comments Lymphocytes # (Auto) (test code = 17143-9) 2.2 1.0-3.2 [facility]Bl[facility] monocytes automated count (number/volume)2020-08-22 04:21:00* Test Item Value Reference Range Interpretation Comments Monocytes # (Auto) (test code = 742-7) 0.9 0.2-0.8 [facility] blood eosinophil count 2020-08-22 04:21:00* Test Item Value Reference Range Interpretation Comments Eosinophils # (Auto) (test code = 711-2) 0.1 0.0-0.4 [facility] blood basophil count (count/volume)2020-08-22 04:21:00* Test Item Value Reference Range Interpretation Comments Basophils # (Auto) (test code = 704-7) 0.1 0.0-0.1 [facility] TexasFluoroscopic procedure less than one hour qmghelhw8019-13-95 04:21:00* Test Item Value Reference Range Interpretation Comments Absolute Immature Granulocyte (auto (grey t code = Absolute Immature Granulocyte (auto) 0.03 0-0.1 [facility] sodium measurement (moles/volume)2020-08-22 04:21:00* Test Item Value Reference Range Interpretation Comments Sodium Level (test code = 2951-2) 140 136-145 [facility] potassium measurement (moles/volume)2020-08-22 04:21:00* Test Item Value Reference Range Interpretation Comments Potassium Level (test code = 2823-3) 5.0 3.5-5.1 [facility] chloride measurement (moles/volume)2020-08-22 04:21:00* Test Item Value Reference Range Interpretation Comments Chloride Level (test code = 2075-0) 99 98-107 [facility] carbon dioxide, total measurement (moles/volume)2020-08-22 04:21:00* Test Item Value Reference Range Interpretation Comments Carbon Dioxide Level (test code = 2028-9) 27 22-29 [facility] anion uzx3663-36-75 04:21:00* Test Item Value Reference Range Interpretation Comments Anion Gap (test code = 05416-3) 19.0 8-16 [facility] urea nitrogen measurement (mass/volume)2020-08-22 04:21:00* Test Item Value Reference Range Interpretation Comments Blood Urea Nitrogen (test code = 3094-0) 10 7-26 [facility] creatinine measurement (mass/volume)2020-08-22 04:21:00* Test Item Value Reference Range Interpretation Comments Creatinine (test code = 2160-0) 0.96 0.57-1.11 [facility] urea nitrogen/creatinine mass ocada3105-23-39 04:21:00* Test Item Value Reference Range Interpretation Comments BUN/Creatinine Ratio (test code = 3097-3) 10 6-25 [facility] TexasEstimated glomerular filtration rate (GFR) xpttpzhpjnbwt3227-11-99 04:21:00* Test Item Value Reference Range Interpretation Comments Estimat Glomerular Filtration Rate (test code = 856647292) 60 >60 Ranges were taken from the National Kidney Disease Education Program and the [facility] literature.Reference ranges:60 or greater: Rserls02-45 ( for 3 consecutive months): Chronic kidney disease 15 or less: Kidney failureBaptist Hospitals of Southeast TexasGlucose gjndfdtxnzc4439-04-46 04:21:00* Test Item Value Reference Range Interpretation Comments Glucose Level (test code = ZNQ8473) 100 74-118 [facility] plasma calcium measurement (mass/volume)2020-08-22 04:21:00* Test Item Value Reference Range Interpretation Comments Calcium Level (test code = 26595-3) 9.8 8.4-10.2 [facility] TexasFluoroscopic procedure less than one hour hetluduy9116-27-69 04:21:00* Test Item Value Reference Range Interpretation Comments Hemoglobin A1c Percent (test code = Hemoglobin A1c Percent) 5.1 4.0-7.0 [facility] or plasma total bilirubin measurement (mass/volume)2020-08-22 04:21:00* Test Item Value Reference Range Interpretation Comments Total Bilirubin (test code = 1975-2) 0.8 0.2-1.2 [facility] TexasFluoroscopic procedure less than one hour utkpllzw4022-37-03 04:21:00* Test Item Value Reference Range Interpretation Comments Aspartate Amino Transf (AST/SGOT) (test code = Aspartate Amino Transf (AST/SGOT)) 60 5-34 [facility] or plasma alanine aminotransferase measurement (enzymatic activity/volume)2020-08-22 04:21:00* Test Item Value Reference Range Interpretation Comments Alanine Aminotransferase (ALT/SGPT) (test code = 1742-6) 107 0-55 [facility] Hospitaler[facility] or plasma protein measurement (mass/volume)2020-08-22 04:21:00* Test Item Value Reference Range Interpretation Comments Total Protein (test code = 2885-2) 8.0 6.5-8.1 [facility] plasma albumin measurement (mass/volume)2020-08-22 04:21:00* Test Item Value Reference Range Interpretation Comments Albumin (test code = 1751-7) 4.8 3.5-5.0 [facility] TexasPlasma globulin measurement (mass/volume) 2020-08-22 04:21:00* Test Item Value Reference Range Interpretation Comments Globulin (test code = 97626-4) 3.2 2.3-3.5 [facility] Hospital[facility] or plasma albumin/globulin mass mxyvn8119-74-27 04:21:00* Test Item Value Reference Range Interpretation Comments Albumin/Globulin Ratio (test code = 1759-0) 1.5 0.8-2.0 [facility] plasma alkaline phosphatase measurement (enzymatic activity/volume)2020-08-22 04:21:00* Test Item Value Reference Range Interpretation Comments Alkaline Phosphatase (test code = 6768-6) 94 40-150 [facility] plasma triglyceride measurement (mass/volume)2020-08-22 04:21:00* Test Item Value Reference Range Interpretation Comments Triglycerides Level (test code = 2571-8) 101 0-149 [facility] plasma cholesterol measurement (mass/volume)2020-08-22 04:21:00* Test Item Value Reference Range Interpretation Comments Cholesterol Level (test code = 2093-3) 197 0-199 Less than 200 mg/dL Low Bdio493 - 239 mg/dL Borderline Tjtr657 m g/dl and greater High Risk [facility]er[facility] or plasma cholesterol in LDL measurement (mass/volume) 2020-08-22 04:21:00* Test Item Value Reference Range Interpretation Comments LDL Cholesterol (test code = 2089-1) 110 60-130 [facility] cholesterol in HDL measurement (mass/volume)2020-08-22 04:21:00* Test Item Value Reference Range Interpretation Comments HDL Cholesterol (test code = 2085-9) 67 40-60 [facility] or plasma total cholesterol/cholesterol in HDL mass qzxim1188-37-47 04:21:00* Test Item Value Reference Range Interpretation Comments Cholesterol/HDL Ratio (test code = 9830-1) 2.9 3.0-3.6 [facility] plasma creatine kinase measurement (enzymatic activity/volume)2020-08-22 04:21:00* Test Item Value Reference Range Interpretation Comments Creatine Kinase (test code = 2157-6) 33 29-168 [facility] plasma creatine kinase MB measurement (mass/volume)2020-08-22 04:21:00* Test Item Value Reference Range Interpretation Comments Creatine Kinase MB (test code = 78659-3) 0.50 0-5.0 [facility] TexasTroponin I measurement by highly sensitive enzyme xtmvtfcpkoi6836-54-46 04:21:00* Test Item Value Reference Range Interpretation Comments Troponin I (test code = 92001-4) 0.016 0-0.300 [facility] or plasma thyrotropin measurement by detection limit <= 0.005 miu/l (units/volume)2020-08-22 04:21:00* Test Item Value Reference Range Interpretation Comments Thyroid Stimulating Hormone (TSH) (test code = 40022-6) 1.491 0.350-4.940 [facility] TexasCT ABDOMEN/PELVIS W9201-00-88 16:47:00 [facility] [address] [place] [address] Patient Name: JOSE RAMON MARCUS MR #: [id number] : 1965 Age/Sex: 55/F Req #: [id number] Adm Physician: GORDON RUGGIERO MD Ordered by: ZACH FITCH DO Report #: [id number] Location: [facility] Room/Bed: [place] [address] Procedure: [id number] CT/CT A BDOMEN/PELVIS W Exam Date: 08/21/20 Exam Time: 1600 REPORT STATUS: Signed EXAM: CT A bdomen and Pelvis WITH contrast INDICATION: Elevated liver function tests. COMPARISON: None. TECHNIQUE: Abdomen and pelvis were scanned utilizing a mult Jammittector helical scanner from the lung base to the pubic symphysis after admi nistration of IV contrast. Coronal and sagittal reformations were obtained. Ro utine protocol was performed. Scan was performed when during portal venous pha se. IV CONTRAST: 100 mL of Isovue 370 ORAL CONTRAST: None COMPLICATIONS: None RADIATION DOSE: Total DLP: 534.01 m Gy*cm Estimated effective dose: (DLP x 0.015 x size factor) mSv CT DIvol has been reviewed. It is below the limits set by the Radiation Protocol Committee (RPC). Dose modulation, iterative reconstruction, and/or weight based adjustment of the mA/kV was utilized to reduce the radiation dose to as low as reasonably achievable. FINDINGS: LINES and TUBES: None. LOWER THORAX: Unremarkable HEPATOBILIARY: The liver is diffuse hypodense compared to the spleen, consistent with diffuse hepatic diffuse hepatic steat osis. No focal hepatic lesions. No biliary ductal dilation. GALLBLADDER : There are cholecystectomy clips. SPLEEN: No splenomegaly. PANCREAS: No focal masses or ductal dilatation. ADRENALS: No adrenal nodules KIDNEYS/URETERS: Kidneys enhance symmetrically. No hydronephrosis. No cystic or solid mass lesions. No stones. GI TRACT: There is a small hiatal he rnia. There is mild mucosal edema of the gastric antrum. No abnormal distentio n, wall thickening, or evidence of bowel obstruction. The appendix is no t seen in isolation, however, no secondary signs of appendicitis. PELVIC ORGANS/BLADDER: There are surgical clips in the pelvis, likely contraceptive c lips. The urinary bladder has a normal wall contour. No large pelvic mass, ian e air or free fluid. LYMPH NODES: No lymphadenopathy. VESSELS: Scatter ed mild arterial vascular calcifications. PERITONEUM / RETROPERITONEUM: No free air or fluid. BONES: There are degenerative changes in the spine. SOFT TISSUES: Unremarkable. IMPRESSION: 1. Mild mucosal ed yariel of the gastric antrum which can be suggestive of mild gastritis. 2. Hep atic steatosis. 3. Small hiatal hernia. Signed by: Sabine Danielle MD on 4:58 PM Dictated By: SABINE DANIELLE MD 57 Transcribed By: ANA on 08/21/201657 COPY TO: ZACH FITCH DO CHEST SINGLE (PORTABLE)2020-08-21 12:27:00 [place] [address] Patient Name: JOSE RAMON MARCUS MR #: [id number] : 1965 Age/Sex: 55/F Req #: [id number] Adm Physician: Ordered by: ZACH FITCH DO Report #: [id number] Location: ER Room/Bed: Procedure: [id number] DX/CHES T SINGLE (PORTABLE) Exam Date: 08/21/20 Exam Time: 1 137 REPORT STATUS: Signed EXAMIN ATION: CHEST SINGLE (PORTABLE) INDICATION: Chest pain COMPARISON: None FINDINGS: LINES/TUBES:None LUNGS:The lungs are well-in flated. No focal consolidation or pulmonary edema. PLEURA:No pleural effusi on or pneumothorax. MEDIASTINUM:The cardiomediastinal silhouette appears no rmal in size and shape. BONES/SOFT TISSUES:No acute osseous injury. AB DOMEN:No free air under the diaphragm. IMPRESSION: No focal pneumonia or pulmonary edema. Signed by: Kylie Charles MD on 08/21/2020 12:27 PM Dictated By: KYLIE CHARLES MD 26 Transcribed By: ANA on 08/21/201226 COPY TO: ZACH FITCH DO BNP [id number] 11:20:00* Test Item Value Reference Range Interpretation Comments B-Type Natriuretic Peptide (test code = 79670-3) 30.1 0-100 [facility] (enzymatic activity/volume)2020-08-21 11:20:00* Test Item Value Reference Range Interpretation Comments Lipase (test code = 3040-3) 18 8-78 [facility] 2019 [id number] 21:45:00* Test Item Value Reference Range Interpretation Comments Novel Coronavirus 2019 nCoV (test code = COVID19) Negative Nega tive Performed by: [facility] [address] [place], [place] [address] CLIA#: [id number] Does patient have the clinical criteria consistent with COVID-19? YIs the patien t going to be discharged home? YTissue [id number] 20:17:00* Test Item Value Reference Range Interpretation Comments Case Report (test code = 104) Surgical Pathology Repor t Case: [id number] Authorizing Provider: Smaira Rivera MD Collected: 02/08/2020 0954 Ordering Location: [facility] Endoscopy Received: 02/08/2020 1141 Services Pathologist: Flaco Paris MD Specimens: A) - Biopsy, Gastric, RANDOM BX B) - Biopsy, Gastroesophageal Junction, BX EVALUATE FOR HUMPHREY'S DIAGNOSIS (test code = 3220) b5ojeCSxDOZrn0pzUJOygLEqKzZaUbTfKyLsGgtgkGAyDSsjglOkHZdxr6RyF2CpXeUuHKwuilGjWITy UsjcqgrpVCOpMSQ6wzWtSBEoIObcINOoASgfUk3xfDAguThkJbRxOJDsk9ttinYSkpbfvKl7k7upNPNb MkL0oXZbYGnlP8qcfrQyhTYqWTAbQPd4uE78TTUcaU 9waNJvUItkbwZvJThxxeTndmFuRfr1HRHuM9npMGDuMHTwY8PgCV2jZAGwGuf8YAP0LAI8mPxxr2N8oQ PtxIBdmJjqVtHjMgOtDQCOo3WiRRj8pIqlO0AjCKSfTlH5jIPbDGNuATkyESHwWUCigiK0kW85DLgoar Q0sECsz1Mzy56nq621gM7azWFrYNQ8EYGpJHGizTSh RQOaYUV5AQAlrXKiB5f0TwTgoSIdY1M9MuCzfWMnL2E7RjZnbFGrX1J2CbBisPWaKYZpoIAjRn4myNZr nAQtfw0jfy92PRL7e4JyzVllDEO9GTI9BtOhEu3wlBWbYPNgYT0cBaJsuDHeZRBsmj93pCxmXKonyhEg lU7yMtQgOK0cfYuar83lPMCiWY5mgZ8xao7uckDwIP bkvURmpXK2deywAWD7IDQgjfAra7Wwz0srJsFtfxShP7kpH4IjFRZvZRHiHNKfGoGjqnIsv8Qwm6KnmG LvhYe8f7kdZVVaORKzmPqek2frDKV3LVUwI4W5aXLty3iwOOnpMMYhcGW8fzjmDMxhHMHsouI2qceySA wzJCNtsIZ2qoqjMFtoUHSbWhP6cvhiQVxyMKGaYYD3 XCfth550OTM0XYvjXmmrUWcmIWUyspVouqVmbKdeXYZfWCVwAGbpVNTpFYjnNYEzRFFpPsEzcEZlGEms z3EutuEliEmgMVNcJWr9nlHfwmnneSt8mIOdhRweJJWnjRsgeZ8aQtYpSiZnKVyioKOmvcmdRPqycwAx IEEuIFxwbGFpblxmMVxmczIwXGxhbmcxMDMzXGhpY2 ynXpZkGQLphSfxZUvez9AsKJKkCENjSIrjapLxSSg8jyHzDJSHI37MD4ejZJphvBQsftyeQLtdrjTdVN GHEjPOXEYqiBxbcH1eFfQyUuZcVOmhYY7wQNHyP9xdwTPlFABbMVBuM0lbWpFgkW8crFuqHUmdLpGgOg QdDWgroQXxqASEIP2OH2spsAMxthllHScwumIaNAcI E3ksgMFudjdcYXkryoAxBJuppfssYEJeAGovS4agMwGtLDIofZhdJWlni6HpRDBfAWNoBSwzsdHzTTn7 ehFgUWjkxOUmTSYlLZhyCIMnZKLyZwFsCYdjtCOqrepmJHbsijPjUVkbxsusOGOrTDshF1frQsCbHTQq bNptJFyoo1LwZKWbTJWgSTaocxBtKAl8joZwDH8upE tgtQ1rVsWbUxFqSIJkTIEyEBosVUDsZUVvXiMtrKEfVhVkYyBwbIpmlYkbLCspXlEtMKLqSVhfB4gpZm XgZ3PkXNUoCoTbgLVwQ3bbBPJGOOASMJVEXJEVH7HmN5nWBKKHDUFUCZzIVEXVBZWPJs9CKDQTYQJUCp SdMUaSNGRJIIKRGtrKCSoZTAGRVNJXRBgQW3GIFXZD L8fdnVVjjladTKljidNsLEQkguRtBPXzW7uUTyYCXkVZBQGVS3VwR1rJWULTNoWTWKyRFOCPK9DTSYUO FVVCMx0GNGxUZKJSUf4KBBUDTQZOUXOjufRfOJPjZYvmIDSzNQQwJxGijPWbRfEuXmUueMbmiVorRGjt PtZbETQzTFjyY5pgPjUgY1JiCOMqMjNonDSiG6uwBI jsoTJtlwycSRseynLwVYQcnLvusE4kNwYmXeUcJShxYK5sELPtH3bziOToEMObIGOcV6jtGgOtwZ2oeD wqXYhjZzAxNuGrDYbmwPZkpERiPtILWWEALsKnTn3YZUuIDFwLZ5LDU7YLXnYIPRgBSsutW2NJCV8VG8 1UVATJJQxLBaKNKS1fC5LPKpXQSFZIKSgAMXKccuqd PKJrXQUpfSNnVQI9mDErecNlkNsihFmoqJ1sCiFnFuAbAZldiMDugfngRYevuuDxKYYwfXkypM2rOmBr QeFdDOalFO5lXDZdT9czvCGhTSApIFDpZ9ckShKmoR0ozXujZBnoXtJlEnKyEBvpwDRcbZScAKZwYDrh XGYxXGZzMjAgIFxwbGFpblxmMVxmczIwXGxhbmcxMD RhXMqvO8vxNtWoAEIfeCsuQAyeb2NvMURcROZfLHhpzeYoIFq3peHrEWGETEgGORqUFPKVH0MiHA3DOS JIVB7OAHZNRDKMRGaSC4bIMYAITMXHOMPYUAHaLM1WEDtQQxFJR9vyeZvrdL8kZtGjSePvANyyHNSsyS FjLRZhOUnMW5BFT4IRJ8CCJGbUAPbbNmAXM9CXL59u WOQZJ8FIUBbraTYkCYQtvnNwq3RuLCEjQPU0YRsbDLsoxLSlWOBipIqzz0fjT3ExaEEqLWUfGOdsUSBh UIFfLgOrjEjplF7eVoYvTnTiTMrjMW1sWJDzE4ggwYHtHBFgGEOhT4tlPpEebE6hvUpjDLkzMxIqBzFg ERukvFPhxOFoNVOnrSsbxD2bNnBoVfKvXTRzDDQfAP nbMRQiGULwOnIeuWKbOrFmTuRtrRlfpZxnJRuaEeXbGGGnUJowN3ywTdXdB1HmMSDlLgXkmHVoN8uaOw SKV5ZJK87UNHCBDUIFZ5AtD9lHKTMgiAttdP7hLoHgHeKcULZMSSMBWErlELQOZXeCN9tRHUMulEDbZR PbKCFGCWfMFUiEXVUYB4JjDKBhYEmtBLKiJVBbVxJh qYBhFlWnHkGnpPaiiDvqDHxhOaYxJRZkREudS0jnHlOpC5MuYXHnLhBsrWOcI0qnXP6ERFGNHE2CNKVK WZMQNHvJK5uXDSUaVHmjLEOgNDEfYcXxWzWztGbbcA6vNsNhViKnJNvsZH8tYCEcO1rkoUZlIPSlQVSs H3vpDcZuiN4nkZcaXVorIcLyFmGqGYwzpFIvmTANMW CJMCFUA3PgFQUPTWfCI4MEOQTsafdqNBZoNRXwlKHqNKF1qNLjgrZmoNrmpCzujX1qIgXfBdPaQZimkN PhbbydEGhfkhYbZWGhqHrjlC9jYrYlXfKsDIrkSJ1uQKRvK5kehHHqUZHbIYTmZ9ueVaOytC9efStjFY xjZjFcZnMyMFxsdHJjaCAtIFxwbGFpblxmMVxmczIw DYEkmCenuS6mQuZtJqDsHYavQO2rGPXcR5assCAyPFGqMEQkN9zfIpGsqB0teCxwGZaaRwFsJjKjDSoh bBCsjGUKENaTDZtYWTPNL4FcEHiPWKiAB9yZLtBCXPpJM79BEwXSPNQkJBdzGNYoVGVsSnNviJZnMYCn zvseLIG2c5lrvLFqGDHoeUBhEVLyPUssfoYhABLxLx ybkflpMYYkGFT4upIvGYWdOMilOKVkRSiaLa7oeUJfzSadJnEhQIFwy4fzfzGWoodfdIe3a2biJSHnDc X4rMSwCFhzC5khvwMdzWGnRFBpDZa2oW21SRUdjJ0itCJwUHgpmzIqXbB0YSvgGQPqLxQ3CDAvnVDuNC AcA7wwTRZnFSglDADwFPcvvEFiPAG8sDlfp4F7gUBx xOHggVewSzOeEpJbAjDYl5NpYFu6eCvqD7JmKDLtUyB8oGMtBELpBWkfCHTwDFVikxN1jV28TGrqcyY6 rRPok7Dyc81op028lT2vdBIqSMJ8PEXbKNKanVRzLNMoRFC0AALauETqC5zpZACvZF4vpwwfBEfcESwj MKRskOR1POLltMEyP6JfSQHaRRhlOSQodjx5WdDcHh 2ylTOvkEugZAffu0qwh7hckXYqYxq7MGVmByNdZsnkANjjw7Jdf6pqCYGneh0bEUO1rUQkfBmwr1H2mM IaZCTywOVuOMBlAT0tkEUgNHBikT5zgddcYSCxDcWdtuybDMNrmUefujYmYi1gmZbqSDX9MAobW4apeX 4bXhK7WHtdR3eskJ4kJMj6IEvoOXUyaKU9qfZ3ZIZx iXEcJ9NbgW7tDDGjUW0wqfb1t8ttWVE6JQkfFIZvFsW3shL2EHEdvHKnQVOvtVpoFYdwz455KDU4LbZn WXIjs8FsA7QfkAteL48uiGobX61zWVHluTfcgI3hcZeuqR3oJoBiZpHyHGkxxLkkGE9qGLUtR5kuoKCf SBFuZZStT7odTlAsjH3ojSkeYJeqdsLyWLCbXph4FH WnvLYmVKIzVro4GUSyLARbS60juamzDAR0fB0ov2xbq5RtDOcwDXG2XRGsw95sCGrpllD9NTcqGx6xMe AmIXZ3QMspOLO3mA== COMMENT (test code = 3359) j8dejEPiJELnkQDlMaHoMWLbOHKfl0apGHXxkHBfAkHeZeOfKhVaBnjiyHWsBMAqZeIoa8jxd311qCOd i1beXGLuNwQ5aVJuYNGgvRDuK018d4xuj3neigCdoAO5OHHnMAW0YQijlpPoitU5BNixxXOkCmM2ZLxd kiItHJalhrIozqCdLsy7XZSrW763YSC8rChtr1khLL Q6KTDoZVVgNsIrNv0yrRBiK483ZBGaBDWFBQWcqBv4ATJwxjIsguVtkZKBy634H740l8ghGIBgzsDbgW dAvxttn8hxZ969HTIkoNTprkGkKjKnHPSlcVCnuKE1TNKrTB3hdrdjGgFvJI9fktojXsLxKU6vimx1Nx VjVP0ebspbHyIbMDgxTFZovcrpXKRji3TfdjmfWB5s H7Nkh5C7aW2kwPAuONIieNEvEtZyPYDdgq9wzKGlKAlbj9AeCIV1kkH7jGQosIXoYRShRC62Rssof5Qe ZeiwPYP6BKYfbgJad2Kpq6hhMeLxliHmF8goM1YcBIJcQPKtPENdFuErpaSvn7Vjl5NepQSdfTz2s5ux MBGvKCJjjByrg9fxNWO7VHBkV2B8hMItg4ikSLfdMW FblPB2vlecNGdmQDAedpQ8qfowNAghTYFxkVC3hoetOGyaPNWzYcI9nttvRQhrAZLbNSJ4DOrrj454GL Z3HGuaCfpvFCuqITXjjiLhumQtlOnhOMGcVJDzOVcdEMUtQJkhQQWdNEAnKvSsaJfecUdxgC1nEcAgGk FmAQvqGU0hMKAjI4ocaPOdTHHyRPZnX0vcYiRkxC2e lMqpRDcfczYlPPj1RlL1ITDcqZHuEQq8GdQgAHWfji5= CPT Code(s) (test code = 3357) j5rdsQClJUEeeRFnVrNsLJQbMIMfw7cbDYOfvZVaKrPaZiMdKgMrZrkmyHDhXURrGeYkc6dpi227qKZy z2cvSFPlXuI1tNQoHIEkhNKoR522m1hhh7pdngIaqVD2UFAtZNA3TZgixsKirbQ5ZZfnfAZlMnS4BCfh csUmHAoqglIsbdJvKxv5DCBfN710NDJ7cHbqp5xnKS E3QRUqUBRiCgQzDu5epPMdQ708VADwGSLCWLEtqVf4NBOkpnQaqmSttMCDb156A821e3gxQGApdnBqhU bAzvxmb0yjV157DRIqrRHlkyLtJzBiHASpaREyuSO1KHTaHP8xagheLkVpFM6lztyiZiMcSO0ebcr0Kg RaEL5tzzoxVeDkYYebEEDqyhlyAICar2DrnnebMD9q J5Bth5A8vD0drGBiZREdsUQgEuEbFTNhie8hnXQkZKrzu3GaBPH3fkA7jTJywVIsKIIwZL21Hwfij7Tj DfwaBFG6YLDaxiIzv9Nrr8ngQlAufxAaG5zhB7LqNVOlSHEnGIMoUoTjwrLpf4Nmc7QdoOCgkZv9z1pm IMMvIXDcwKuuy7yxFJI1GXArR3S5uVXat5hhZRyxGA NxhXF1vlimHDcqTPZlqjR9lwoyGHbtCTRyrSJ0rfumINdsAAUfEfY4gogxYPmrVCTyCCT8TBzfr919CB S4ZRciLhubHFmoDOEapaSmhxZxtOqzTVIfAXJeCDbvLJMlLOmdJUMeYDOdAeFkwXjevSkupO0wHpTcUl DyGMqtAY4xPRInT3dccTKeRXZlFGQwM2joGiDewL9s kUmzJVqatpXvSYq8JdJ4EPJxwKPbRJx1NcGuIJNgmp5= CLINICAL HISTORY (test code = 3356) w8soaXIqXSNfyCLtIxLaUCLfDJAsd7zmHWQmsWYqDcDrXbSrHmGlGnsmhIZoLPQmIdPbd3ljn573tLRn x7yjRZZtIuK4gBGkHUDpvQEqQ905YOPrBOrjk7ynh6PwANBblMZmx4L7HSHRzkxgjRp8wZpmB25qr6E3 JrxlP1zcOYYgYTprMOZjKTztqGKhVHG6EYBrELO4SU symhJfufN3QKkcnRBkGvW4BKb5o2sufYzbFWYyIQQ9w8csUDbhadJlFC7xgt8vmLy6z7uifjMdOOHaUX UypGOQGUJuT4NquIdzMb6bpGv4gThiEyykPUG8Hda2NS3lpo46yut0iHivHUDptdcmGmJ7BVaaBDUzda dsRZh7PSvgHURxdWjlGGbxQEPwngrqJVemRXArqWhp MWovUQQdHguoGCgwEPMiLGM9SSbho187KFS0OEqfa2vmd1ohqARuYav8TOVcBxLeUzfyKFjqn3Yzx3zb FTDeas8dDUV1xJYuaAtkv2V2zRTqHBHdyBBlscAvYPSuUwF8LEgxHQ0whb85IWSjXPK5qk6qxBGccBvf vpTozRTuWIjsY2AjNNRim649XPDeX1WzTFKln8J1qr FpOsPuZMLklDO3rnK8VZRiIKm7vBVtdcD5kkMyuNCoD0vtfV83GbAnxXOtJ3IotX23RgMawGDbR9AphE 15ZqPqzIOzP2YdhQ06EgBpuJUsNNWqaQUbMc0lcMDnoQSpt4NnvCTiMPsgI78hc954ETZhdpGvZ8jncS FpblxwbGFpblxmMFxmczIwXHFsXHBsYWluXGYwXGZz CiIexGaapS8vMyAvBzEkXOEXcnMbgWIfuGErkq5mvXQ9YQEUN2JmFI4kfxxkVh4xEKMglV8lVJOhrvQp rd8qHFTbOLkyHNZdCQPqXjGaH8EooIPpEHDwwJghY4BouLQiLKBjzWjvYDmaKIXmFQksrWTsujtoQNld czIwICBccGFyfQ== SPECIMEN SOURCE (test code = 3377) x5gezOWqKLMagKFoJaPfOTIlSNEmj7smABZwxKJsNvPeFmKlSlNdZrsglJStOOGwGeKsp1fag142oHUz k5ysDJItAwD4vMKcECOkxSNjN895CTFrUOjoq0udb3JtFGErgHJxs5G5JPLTyehxgTt5aFigC86rj0Y0 XlfbL4jbOIAxAVejJDGhAOwjfCDdUPH7FLFnOIX8RT vxlxDczlP3FEtsaOYsPhP5TFz1n5csnEujBUGmJOS9b7slVWmqohUbAP7ccu0ryYv0h1piduUlBOTaOM MafZPHGCZmW5YuiNhhLr6mmUd6rQmnFjlaRPF9Owq9ZB2oxe22jdi2cBtfQNSpmvmwIwW4NRdbZSUfti nxMTk2FIphRCXyhXmeEWsnTUXjntowNGfwYDQejIlw RTbsJQIdZqgsBWjlLCHlQTZ9WSnss686FSW8CXqom7pyp2lvrHEpSpc4DTUtKjDpAujzQPunl5Fjj5wp YWJyku6hBMI8kOBfaAyep2K4jDNbWVKswSYhovEbLFDxYsD3YGuhUY2sza90HLOoAIR6an8muQPpzRac fiAgjRCtXIqsR8NtYPJmp943REMwS0GtACAah1B8cu IvPeEyULDnpGK9qwV4JAZnUWy4qABpejR2pdJkyTIaO9ixkT74VvZglGGmH2HnuV84QeSuhMHxG4TtxS 65OmZtcWLpH4CdcA17DvDoxUNqURKarSAlRd4lhCQlvSJtk3ChmBUnPUsfW01qy074PRWipsOwS5ojmD FpblxwbGFpblxmMFxmczIwXHFsXHBsYWluXGYwXGZz DoPxyWxyxA0iJsSdMjNnCJDHHhQUZI8or56aJ4EwkCNyJoPtxE4yk8y7WFTdKQqwjNUwdzxvHOlypqKc LKhny0Zpr3Fah8CtVZymVAnaycLyF5Qka18nlEtuoK6fEwQeSlXePHZevsSmD1Yof11uhHRmlC== GROSS DESCRIPTION (test code = 3366) b4aawDKwALSkmLMnFlLxSEDaSXIpu6zsSCBdiFVuUdDsUdSfRvFcCdyqxSZqNBExHcBek7smv451lSQb x1kyOTZcMqF5kSRuKOTquOHpC147WKUpAAgsn2btc8GlRYIakSCcs9F7MLYFzixyqNa8fOgrF26nn5X3 RwirZ6opPQTiJDrrPHLxWFmkmWQzIOR6OHLdPTT6QR owceZpjcK0FToebSGsXgY3FGg9w2bhgVzyXMSwKYB2v0xlRIkrpcXpOH9hlw1ixIc3b7jmamYpSPScCR ZclHUWILMtO7AjkJoxVr3asSx2sFnrGvdvDEF7Bbn5ZZ6zal58iyt1jUlbQRXriepgTqJ8QBfbQESwxl wyMBu9RTvxHJEoeQcuNQrwKPWmrslzUQlhUMZhdZql RTfaTWJgHkeiJKpfHDQcUMU3JVilg090BWS3RAbmx6tce5ttcLSlBln1UKGnKdVsFesgLFgar4Oxa2im XRWoel8fJJW7wSWybIevt1M2yFPwHJYcxXAbunHuMEMaYgK8PAiwED2atw48JGNyQMO6hl6cyQIsnKcu boUhpBVgSMpiS7IqTHUmg055ZVOfQ5WxEWPeo5I1mp UtEaHhLKAshRE6nzA0RJAtIQi8cUNhjsI1xdZlePLvZ4lyqT68BzQcdTZvA2SsbR53XpTxmAGkN1AvuL 58OdIvmIGbW0BdzV71PqPbtRIqIJYeySKqYj5rsVEtaKDcc0NohXOeUEuoV05wt359AVHbnbTvV7acsZ FpblxwbGFpblxmMFxmczIwXHFsXHBsYWluXGYwXGZz AqRehWyvaS2lXrNpQsIhAUOTOyHzhJomsU4dQkAkRlYlRNMDVEGevCEaJUZwxvPyz0BxBIscqhAuCVYd wUKtSJVzUM9tp38fM5ChyLMlJtAlcU2yo2rwSStuIBTnGD25AXqrVO59AOvnHE6oHQFlIHQgO8MqK8L6 OCMpBdY7GR6jsAtgt0VbRVLaSBukBV24UCL3Vj6wzF NuQPTzrrWcriNltEVhkdLwAYYgkbxgEIIcPSGnMNO9VOMBDK9rUJMpihztZEIzUw5wGiRnLLp3MUMfaE 5eJa7qtKVbgH9zlOYzHOyuGTOnC4YsdWJjFZTjePksL5TqoCHxjQ0umRoqxwKlgV3wr9yijO1tFXNlgF XjbETnDx2bFIFkvxBiuGVfsmEbHPWjIFD2ofNgazKd rARsvLIgh9NihUEuBJliiDKuNYNak9A8SNkmTP1dMGoqJF1eNThqPS2sRXXkHIurSOWnY8DlS7P4VHze x4YipQf9wUZkXYGgeSdyTJp7VFcwIAMqw1dqJ9jpWYQcv5HvrZGnHANmAAX7NMWkRmkpdBVsiZhksz2q MJlBS1ZuKKTnFCuiTUIjNHYcAwRcmCOqtA== MICROSCOPIC DESCRIPTION (test code = 3371) p0yuaNPxVXDftRYhXmBpXOYkJXGfx8qdLDVbbTAcPsQxHvNcBhLwOvzpiUCwGOXvMaAbk2tgq767oDEe q2lyQMEnArN4wUZjFGSvmDQuI831VENjWGigu1fmk0WeLFZhyLYwn0Y2KNWJtddqwTt7aPgzB47xo8X3 YntwV9ehMVTaHWznECGkEXnoxNMoAMW2GJAeOVL7EK yxrhOuoaX1LJftzDQyYsV5YVx3s2egqKxzLZCzUPG6z5coUCasrnThAO8edd0puCd0i1hhcrXuPXVcFA NknSAHPXLeH8ZfyNkcDz2vwJs2iDjnRwghJQQ0Ses7BA7eds67der9nWlbEZZxyswiYaX6HWbkOQWwni ueKNy6NMpoHSGetSulCLbqLCVgofklHRmvAKRfpDkp WXqcDRErWrcoXTzpGDDdWTS2RWzvy033BGO6UMrfn5kbl5vtzUOzMmu0ZGCzClSeXaisAZqrv4Gjn6ai AFBdpp7rAWH3wDFbuJnfe2U9dWKmNQBwyHYwpnTpGYNoxp42vPImqYIayWCpbq5lzdBhrMJsnIFtDGX2 qVUfciZdOXUiuMIzCJByBH1smSRpZIVofA2ctpdgCP GyKcFcrgatBHGebPrynbGaVt6ayBnyQET9PUbqI2fkcS8rOxI0YAjvW3axxN4xBYc6OWqjjTC8HSGbbP 0oAB8zolyfb7fmOhCrYA0uxuuok2yhZbApVH0fsdl5q3lkWiIaRE7rvzqve1pdMcVaIUfrSVOxyefcRM Mxi7PlvylzSTZsa7ZsL9JfbIjfE94llNifO64kXJAo xXlwpJ4tdZpwnR0dZvJoMyQxXSyjlLbsyONhrmktBEdghaOwNVBpUFcaJVHyXSPgSaYvLZGwOi6rcXBe LlxwYXJccGFyfQ== SPECIAL STUDIES (test code = 3376) [file] KgkVHxZfKpEjDygHlzmQxxYinsMmXlYVMwNIutB5ylPbFqRfDsIwchGQP0bH== [facility] [id number] 20:17:00Surgical Pathology Report Case: [id number] Authorizing Provider: Samira Rivera MD Collected: 02/08/2020 0954 Ordering Location: [facility] Endoscopy Received: 02/08/2020 1141 Services Pathologist: Flaco Paris MD Specimens: A) - Biopsy, Gastric, RANDOM BX B) - Biopsy, Gastroesophageal Junction, BX EVALUATE FOR HUMPHREY'S A. STOMACH, RANDOM BIOPSIES: - ANTRAL MUCOSA WITH REACTIVE GASTROPATHY AND MILD CHRONIC INACTIVE GASTRITIS - OXYNTIC MUCOSA WITH NO SIGNIFICANT DIAGNOSTIC ABNORMALITY - NEGATIVE FOR HELICOBACTER PYLORI ORGANISMS BY WARTHIN STARRY STAIN - NEGATIVE FOR INTESTINAL METAPLASIA, DYSPLASIA, MALIGNANCYB. GASTROESOPHAGEAL JUNCTION, BIOPSY: - JUNCTIONAL MUCOSA WITH REFLUX ESOPHAGITIS - NEGATIVE FOR INTESTINAL METAPLASIA/ HUMPHREY'S ESO PHAGUS - NEGATIVE FOR DYSPLASIA/ MALIGNANCY Signing Pathologist Direct Nuria ne Line: [phone] signed by Flaco Paris MD on 020 at 8:17 [id number] diagnosis: Screening for colon can cer. Gastroesophageal reflux disease A. Random gastric biopsy; B. Gastroesophage al junction junctionA. Received in formalin labeled "random gastric biopsy" is a 0.6 x 0.4 x 0.3 cm aggregate of june tissue fragment submitted entirely in a sin gle cassette A1. B. Received in formalin labeled "gastroesophageal junction biop sy to evaluate for Humphrey's" are two fragments of june-white tissue, 0.3 x 0.2 x 0.2 cm in aggregate, submitted entirely in a single cassette B after filtration. YY/plPerformed.The interpretation of this case included the use of immunohist ochemistry or special stains.Control Slides Examined: In-house known positive c ontrols were evaluated along with the test tissue. These control slides run willy ngside of the patients sample show appropriate staining. Internal positive and n egative controls when available are evaluated Immunohistochemistry technical grey ting was performed at [facility], Pathology Laboratory whe re it was developed and its performance characteristics were determined. It has not been cleared or approved by the U.S. Food and Drug Administration. The FDA h as determined that such clearance or approval is not necessary. The test is used for clinical purposes. It should not be regarded as investigational or for rese arch. This laboratory is certified under the Clinical Laboratory Improvement Crystal ndments of 1987 (CLIA-88) as qualified to perform high complexity clinical labor atory testing.
--- OUTSIDE RECORDS SUMMARY | 2020-08-26 15:17 | XMS REPORT | Clinical Summary ---
Author Author [employer]ISE [employer] Customer Support [facility] Address Unknown Phone Unavailable Care Team Providers Care Wash Crew Person Name Role Phone Debbie Wilcox MD PCP [...] 9:54 AM CDT) Case Report Surgical Pathology [facility] TH Report [facility] Case: [id number] Authorizing Provider:Samira Rivera MD Collected: 02/08/2020 0954 Ordering Location: [facility] Endoscopy Received: 02/08/2020 1141 Services Pathologist: Flaco Paris MD Specimens: A) - Biopsy, Gastric, RANDOM BX B) - Biopsy, Gastroesophageal Junction, BX EVALUATE FOR DAVIDSON'S DIAGNOSIS A. STOMACH, RANDOM BIOPSIES: [facility] - ANTRAL MUCOSA WITH [facility] REACTIVE GASTROPATHY AND MILD CHRONIC INACTIVE GASTRITIS - OXYNTIC MUCOSA WITH NO SIGNIFICANT DIAGNOSTIC ABNORMALITY - NEGATIVE FOR HELICOBACTER PYLORI ORGANISMS BY WARTHIN STARRY STAIN - NEGATIVE FOR INTESTINAL METAPLASIA, DYSPLASIA, MALIGNANCY B. GASTROESOPHAGEAL JUNCTION, BIOPSY: - JUNCTIONAL MUCOSA WITH REFLUX ESOPHAGITIS - NEGATIVE FOR INTESTINAL METAPLASIA/ DAVIDSON'S ESOPHAGUS - NEGATIVE FOR DYSPLASIA/ MALIGNANCY Signing Pathologist Direct Phone Line: [phone] COMMENT [id number] [facility] H [id number] [facility] CPT Code(s) 92066B9 [facility] H [address]59 [facility] CLINICAL HISTORY Preop diagnosis: Screening [facility] for colon cancer. [facility] Gastroesophageal reflux disease SPECIMEN SOURCE A. Random gastric biopsy; B. [facility] Gastroesophageal junction [facility] junction GROSS DESCRIPTION A. Received in formalin [facility] labeled "random gastric [facility] biopsy" is a 0.6 x 0.4 x 0.3 cm aggregate of june tissue fragment submitted entirely in a single cassette A1. B. Received in formalin labeled "gastroesophageal junction biopsy to evaluate for Davidson's" are two fragments of june-white tissue, 0.3 x 0.2 x 0.2 cm in aggregate, submitted entirely in a single cassette B after filtration. YY/pl MICROSCOPIC DESCRIPTION Performed. [facility] SPECIAL STUDIES The interpretation of this [facility] case included the use of [facility] immunohistochemistry or special stains. Control Slides Examined: In-house known positive controls were evaluated along with the test tissue. These control slides run alongside of the patients sample show appropriate staining. Internal positive and negative controls when available are evaluated Immunohistochemistry technical testing was performed at [facility], Pathology Laboratory where it was developed [...] Performing Organization Address City/State/Zipcode Ph one Number [facility] [address] [place], [place] [address] [facility] after 08/21/2019 Insurance Payer Benefit Subscriber ID Type Phone Address Plan / Group [employer]UE [employer]OSS[employer]BLUE [employer] BCBS PPO xxxxxxxxxxxx PPO [id number] [place] [address] CHOICE Lala glad[employer] (Home) [place], [place] [phone] (Work) Advance Directives For more information, please contact: [facility] [address] [place] [address] Date Inactivated Comments Code Status Date Activated [...]
--- OUTSIDE RECORDS SUMMARY | 2020-08-26 15:17 | XMS REPORT | Continuity of Care Document ---
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 Name Role Phone Toni TAYLOR PCP BRYNN BAUTISTA Attphys Unavailable GORDON RUGGIERO Attphys Unavailable Elizabeth YI, Brynn Attphys El Perdomo NP Attphys Hiro RIVERAEAL Attphys Unavailable Nicole YI, Justin Hogan Attphys Drew Dixon CRNA Attphys [phone] GORDON RUGGIERO Admphys Unavailable Hiro RIVERA Admphys Unavailable Payers Payer Name Policy Type Policy Number Effective Date Expiration Date S mary ann [place]PO POS [id number] 2019 00:00:00 [employer] [place] P[place] [id number] [facility] BLUE CROSS/BLUE SHIELDBCBS PPO POS EPO C [id number] [id number], [place] [address] xxxxxxxxxxxx [facility] Problems Condition Name Condition Details Condition Category Status Onset Date Resolution Date Last Treatment Date Treating Clinician Comments Source Nodule of right lung Nodule of right lung Disease Active 00:00:00 [facility] Lung nodule Lung nodule Disease Active 2014-02-08 00:00:00 [facility] Pulmonary nodules/lesions, multiple Pulmonary nodules/lesions, m ultiple Disease Active 2014-02-01 00:00:00 [facility] SOB (shortness of breath) SOB (shortness of breath) Disease Ac tive 2014-02-01 00:00:00 [facility] Cough Cough Disease Active 2014-02-01 00:00:00 [facility] Chest pain Problem Active [facility] Allergies, Adverse Reactions, Alerts Allergy Name Allergy Type Status Severity Reaction(s) Onset Date Inacti ve Date Treating Clinician Comments Source No Known Allergies DA Active U 2020-03-28 00:00:00 [facility] Family History Family Member Diagnosis Comments Start Date Stop Date Source Maternal grandfather Head and neck cancer MD Mercado Paternal grandfather Lung cancer MD Mercado Paternal grandmother Brain cancer MD Mercado Natural mother Hypertension [facility] Social History Social Habit Start Date Stop Date Quantity Comments Source Sex Assigned At [facility] Tobacco use and exposure 2020-02-18 00:00:00 2020-02-18 00:00:00 Casey Mercado Alcohol intake 2020-02-18 00:00:00 2020-02-18 00:00:00 Current drinker of alcohol (finding) MD Mercado Cigarettes smoked current (pack per day) - Reported 00:00:00 2020-02-08 00:00:00 [facility] Cigarette pack-years 2020-02-08 00:00:00 2020-02-08 00:00:00 [facility] History of tobacco use 2013-12-16 00:00:00 Current smoker MD Mercado Smoking Status Start Date Stop Date Source Former smoker 2020-02-08 00:00:00 2020-02-08 00:00:00 [facility] Medications Ordered Medication Name Filled Medication Name Start Date Stop Da te Current Medication? Ordering Clinician Indication Dosage Frequency Signature (SIG) Comments Components Source Aspirin (Aspirin Chew) 81 Mg CHEW Aspirin (Aspirin Chew) 81 Mg CHEW 2020-08-22 10:27:00 Yes 81 Daily [facility] multivitamin (THERAGRAN) tablet 2020-02-17 19:36:22 Yes 1{tbl} Take 1 tablet by mouth daily. MD Mercado dexlansoprazole (Dexilant) 60 mg capsule 2020-01 00:00:00 2021-02-17 04:59:00 No Gastro-esophageal reflux disease with esophagit is 60mg Take 1 capsule (60 mg) by mouth daily. MD Mitchel zavala CHOLECALCIFEROL, VITAMIN D3, ORAL 2020-02-08 10:15:38 2019 00:00:00 No Take by mouth. [facility] ferrous sulfate 142 mg (45 mg iron) TbER 2020-01 10:15:2020-02-08 00:00:00 No 142mg QD Take 142 mg by mouth daily. [facility] hydrochlorothiazide (HYDRODIURIL) 12.5 MG tablet 2020-02-08 10:15:2020-02-08 00:00:00 No 12.5mg QD Take 12.5 mg by mout h daily. [facility] multivitamin per tablet 2020-02-07 12:24:19 Yes 1{tbl} QD Take 1 tablet by mouth daily. [facility] fluticasone propionate (FLOVENT HFA) 110 mcg/actuation inhal er 2020-02-07 12:24:19 Yes 1{puff} Inhale 1 p uff by mouth via inhaler 2 (two) times daily as needed. [facility] albuterol HFA (VENTOLIN HFA) 90 mcg/actuation inhaler 2020-02-07 12:24:19 Yes 1{puff} Inhale 1 puff b y mouth via inhaler every 6 (six) hours as needed for Wheezing. [facility] hydroCHLOROthiazide (HYDRODIURIL) 25 MG tablet 2020-02-07 12:24: 19 Yes 25mg QD Take 25 mg by mouth daily. [facility] omeprazole (PriLOSEC) 40 MG capsule 2020-01-16 00:00:0 0 2020-02-17 00:00:00 No daily. MD Mercado hydroCHLOROthiazide (HYDRODIURIL) 25 mg tablet 2019-12-29 00:00: 00 Yes daily. MD Mercado lisinopril (PRINIVIL,ZESTRIL) 5 mg tablet 2017-06-12 00:00:00 Yes daily. MD Mercado lisinopril (PRINIVIL,ZESTRIL) 5 MG tablet 2014-01-23 11:55:39 Yes 5mg QD Take 5 mg by mouth daily. [facility] omeprazole (PRILOSEC) 40 MG capsule 2014-01-23 11:55:39 Yes 40mg QD Take 40 mg by mouth daily. [facility] Dexlansoprazole (Dexilant) 60 Mg CAP. Dexlansopra zole (Dexilant) 60 Mg CAP. Yes 1 Daily [facility] Hydrochlorothiazide Hydrochlorothiazide Yes 25 Daily [facility] Lisinopril Lisinopril Yes 5 Daily [facility] Vital Signs Vital Name Observation Time Observation Value Comments Source BMI (Body Mass Index) 2020-08-22 10:27:00 29.2 kg/m2 [facility] Weight 2020-08-22 10:25:00 165 [lb_av] [facility] Body Temperature 2020-08-22 08:43:00 98.4 [degF] [facility] Systolic blood pressure 2020-02-17 19:25:37 126 mm[Hg] [...] Systolic blood pressure 2020-02-08 10:44:00 107 mm[Hg] [facility] Diastolic blood pressure 2020-02-08 10:44:00 68 mm[Hg] [facility] Heart rate 2020-02-08 10:44:00 66 /min [facility] Body temperature 2020-02-08 10:44:00 36.39 [facility] Respiratory rate 2020-02-08 10:44:00 18 /min [facility] Oxygen saturation in Arterial blood by Pulse oximetry 02-07 10:44:00 99 /min [facility] Body height 2020-02-08 09:12:00 160 cm [facility] Body weight Measured 2020-02-08 09:12:00 70.852 kg [facility] BMI 2020-02-08 09:12:00 27.67 kg/m2 [facility] Procedures Procedure Date / Time Performed Performing Clinician [facility] e Computed tomography of abdomen and pelvis with contrast 00:00:00 [facility] REPORT OF PROCEDURE - ENDOSCOPY URL 2020-02-08 10:14:33 [facility] REPORT OF PROCEDURE - ENDOSCOPY URL 2020-02-08 09:58:25 [facility] TISSUE EXAM 2020-02-08 09:54:00 [facility] COLONOSCOPY 2020-02-08 09:45:00 [facility] UPPER ENDOSCOPY,BIOPSY 2020-02-08 09:45:00 [facility] Plan of Care Planned Activity Planned Date Details Comments Source Future Scheduled Test 2030-02-07 00:00:00 Screening for rayna gnant neoplasm of colon (procedure) [code = 598748616] [facility] Future Scheduled Test 2020-07-31 00:00:00 INFLUENZA VACCINE (#1) [code = INFLUENZA VACCINE (#1)] [facility] Future Scheduled Test 1986 00:00:00 Screening for raynachente siddiqi neoplasm of cervix (procedure) [code = 333213441] [facility] Future Scheduled Test 1965 00:00:00 Screening for rayna gnlucretia neoplasm of breast (procedure) [code = 669394386] [facility] Instructions Chest Pain - Chest Wall [facility] Encounters Start Date/Time End Date/Time Encounter Type Admission Type [facility] Care Department Encounter ID Source 2020-10-11 00:00:00 2020-10-11 00:00:00 Outpatient BRYNN BETTS MDA, MDA [id number] MD Mercado 2020-10-04 00:00:00 2020-10-04 00:00:00 Outpatient MP BAUTISTA BRYNN QUINONEZ MDA [id number] [place] 2020-08-21 14:03:00 2020-08-22 11:05:00 Discharged Inpatient (obs) 1 GORDON RUGGIERO [facility] [id number] [facility] Results Test Description Test Time Test Comments Results Result Comments Source Blood leukocytes automated count (number/volume) 2020-08-22 04:21:00 Test Item White Blood Count (test code = 6690-2) 7.99 4.8-10.8 [facility] (number/volume)2020-08-22 04:21:00* Test Item Value Reference Range Interpretation Comments Red Blood Count (test code = 789-8) 4.78 3.6-5.1 [facility] measurement (moles/volume)2020-08-22 04:21:00* Test Item Value Reference Range Interpretation Comments Hemoglobin (test code = 49816-6) 14.4 12.0-16.0 [facility] hematocrit (volume fraction)2020-08-22 04:21:00* Test Item Value Reference Range Interpretation Comments Hematocrit (test code = 4544-3) 43.6 34.2-44.1 [facility] eryth[facility] mean corpuscular kfiydp1706-94-50 04:21:00* Test Item Value Reference Range Interpretation Comments Mean Corpuscular Volume (test code = 787-2) 91.2 81-99 [facility] mean corpuscular hemoglobin (mass per erythrocyte)2020-08-22 04:21:00* Test Item Value Reference Range Interpretation Comments Mean Corpuscular Hemoglobin (test code = 785-6) 30.1 28-32 [facility] eryth[facility] mean corpuscular hemoglobin concentration measurement (mass/volume)2020-08-22 04:21:00* Test Item Value Reference Range Interpretation Comments Mean Corpuscular Hemoglobin Concent (test code = 786-4) 33.0 31-35 [facility] HospitalRDW QurQi-[id number] 04:21:00* Test Item Value Reference Range Interpretation Comments Red Cell Distribution Width (test code = 73719-4) 11.9 11.7 -14.4 [facility] blood platelet count (count/volume)2020-08-22 04:21:00* Test Item Value Reference Range Interpretation Comments Platelet Count (test code = 777-3) 301 140-360 [facility] segmented neutrophil count as percentage of total yxzzxdqhai8966-18-24 04:21:00* Test Item Value Reference Range Interpretation Comments Neutrophils (%) (Auto) (test code = 22429-5) 58.5 38.7-80.0 [facility] lymphocyte count as percentage ot total rsqiiovxbn7246-30-13 04:21:00* Test Item Value Reference Range Interpretation Comments Lymphocytes (%) (Auto) (test code = 736-9) 27.9 18.0-39.1 [facility] blood monocyte count as percentage of total prgtckxmop2627-03-98 04:21:00* Test Item Value Reference Range Interpretation Comments Monocytes (%) (Auto) (test code = 5905-5) 10.8 4.4-11.3 [facility] blood eosinophil count as percentage of total zrrnywonhz8172-76-24 04:21:00* Test Item Value Reference Range Interpretation Comments Eosinophils (%) (Auto) (test code = 713-8) 1.8 0.0-6.0 [facility]Autom[facility] blood basophil count as percentage of total clphrezaod0116-10-04 04:21:00* Test Item Value Reference Range Interpretation Comments Basophils (%) (Auto) (test code = 706-2) 0.6 0.0-1.0 [facility] HospitalFluoroscopic procedure less than one hour jbjtnnva4559-12-23 04:21:00* Test Item Value Reference Range Interpretation Comments IM GRANULOCYTES % (test code = IM GRANULOCYTES %) 0.4 0.0- 1.0 [facility] blood neutrophil count 2020-08-22 04:21:00* Test Item Value Reference Range Interpretation Comments Neutrophils # (Auto) (test code = 751-8) 4.7 2.1-6.9 [facility] lymphocytes count (number/volume) 2020-08-22 04:21:00* Test Item Value Reference Range Interpretation Comments Lymphocytes # (Auto) (test code = 50103-4) 2.2 1.0-3.2 [facility] monocytes automated count (number/volume)2020-08-22 04:21:00* Test Item Value Reference Range Interpretation Comments Monocytes # (Auto) (test code = 742-7) 0.9 0.2-0.8 [facility] HospitalAutomated blood eosinophil count 2020-08-22 04:21:00* Test Item Value Reference Range Interpretation Comments Eosinophils # (Auto) (test code = 711-2) 0.1 0.0-0.4 [facility] HospitalAutomated blood basophil count (count/volume)2020-08-22 04:21:00* Test Item Value Reference Range Interpretation Comments Basophils # (Auto) (test code = 704-7) 0.1 0.0-0.1 [facility] HospitalFluoroscopic procedure less than one hour rhqqsxtn9587-67-41 04:21:00* Test Item Value Reference Range Interpretation Comments Absolute Immature Granulocyte (auto (grey t code = Absolute Immature Granulocyte (auto) 0.03 0-0.1 [facility] sodium measurement (moles/volume)2020-08-22 04:21:00* Test Item Value Reference Range Interpretation Comments Sodium Level (test code = 2951-2) 140 136-145 [facility] plasma potassium measurement (moles/volume)2020-08-22 04:21:00* Test Item Value Reference Range Interpretation Comments Potassium Level (test code = 2823-3) 5.0 3.5-5.1 [facility] plasma chloride measurement (moles/volume)2020-08-22 04:21:00* Test Item Value Reference Range Interpretation Comments Chloride Level (test code = 2075-0) 99 98-107 [facility] or plasma carbon dioxide, total measurement (moles/volume)2020-08-22 04:21:00* Test Item Value Reference Range Interpretation Comments Carbon Dioxide Level (test code = 2028-9) 27 22-29 [facility]um or plasma anion owf2762-79-65 04:21:00* Test Item Value Reference Range Interpretation Comments Anion Gap (test code = 60019-7) 19.0 8-16 [facility] or plasma urea nitrogen measurement (mass/volume)2020-08-22 04:21:00* Test Item Value Reference Range Interpretation Comments Blood Urea Nitrogen (test code = 3094-0) 10 7-26 [facility] or plasma creatinine measurement (mass/volume)2020-08-22 04:21:00* Test Item Value Reference Range Interpretation Comments Creatinine (test code = 2160-0) 0.96 0.57-1.11 [facility] or plasma urea nitrogen/creatinine mass tzfxz8109-03-99 04:21:00* Test Item Value Reference Range Interpretation Comments BUN/Creatinine Ratio (test code = 3097-3) 10 6-25 [facility] HospitalEstimated glomerular filtration rate (GFR) eaaxrplkbojaa0550-41-68 04:21:00* Test Item Value Reference Range Interpretation Comments Estimat Glomerular Filtration Rate (test code = 485711049) 60 >60 Ranges were taken from the National Kidney Disease Education Program and the [employer] literature.Reference ranges:60 or greater: Aaypem53-05 ( for 3 consecutive months): Chronic kidney disease 15 or less: Kidney failureMayhill HospitalGlucose pnivbqvodci0341-61-89 04:21:00* Test Item Value Reference Range Interpretation Comments Glucose Level (test code = SOT6423) 100 74-118 [facility] or plasma calcium measurement (mass/volume)2020-08-22 04:21:00* Test Item Value Reference Range Interpretation Comments Calcium Level (test code = 01713-1) 9.8 8.4-10.2 [facility] HospitalFluoroscopic procedure less than one hour fnimpftx9199-77-01 04:21:00* Test Item Value Reference Range Interpretation Comments Hemoglobin A1c Percent (test code = Hemoglobin A1c Percent) 5.1 4.0-7.0 [facility] or plasma total bilirubin measurement (mass/volume)2020-08-22 04:21:00* Test Item Value Reference Range Interpretation Comments Total Bilirubin (test code = 1975-2) 0.8 0.2-1.2 [facility] HospitalFluoroscopic procedure less than one hour kbzigcav8530-96-56 04:21:00* Test Item Value Reference Range Interpretation Comments Aspartate Amino Transf (AST/SGOT) (test code = Aspartate Amino Transf (AST/SGOT)) 60 5-34 [facility] or plasma alanine aminotransferase measurement (enzymatic activity/volume)2020-08-22 04:21:00* Test Item Value Reference Range Interpretation Comments Alanine Aminotransferase (ALT/SGPT) (test code = 1742-6) 107 0-55 [facility] or plasma protein measurement (mass/volume)2020-08-22 04:21:00* Test Item Value Reference Range Interpretation Comments Total Protein (test code = 2885-2) 8.0 6.5-8.1 [facility] or plasma albumin measurement (mass/volume)2020-08-22 04:21:00* Test Item Value Reference Range Interpretation Comments Albumin (test code = 1751-7) 4.8 3.5-5.0 [facility] HospitalPlasma globulin measurement (mass/volume) 2020-08-22 04:21:00* Test Item Value Reference Range Interpretation Comments Globulin (test code = 88912-0) 3.2 2.3-3.5 [facility] or plasma albumin/globulin mass lethr8329-97-25 04:21:00* Test Item Value Reference Range Interpretation Comments Albumin/Globulin Ratio (test code = 1759-0) 1.5 0.8-2.0 [facility] or plasma alkaline phosphatase measurement (enzymatic activity/volume)2020-08-22 04:21:00* Test Item Value Reference Range Interpretation Comments Alkaline Phosphatase (test code = 6768-6) 94 40-150 [facility]ale[facility]um or plasma triglyceride measurement (mass/volume)2020-08-22 04:21:00* Test Item Value Reference Range Interpretation Comments Triglycerides Level (test code = 2571-8) 101 0-149 [facility]ale[facility]um or plasma cholesterol measurement (mass/volume)2020-08-22 04:21:00* Test Item Value Reference Range Interpretation Comments Cholesterol Level (test code = 2093-3) 197 0-199 Less than 200 mg/dL Low Erfi051 - 239 mg/dL Borderline Huyc532 m g/dl and greater High Risk [facility]ale[facility]um or plasma cholesterol in LDL measurement (mass/volume) 2020-08-22 04:21:00* Test Item Value Reference Range Interpretation Comments LDL Cholesterol (test code = 2089-1) 110 60-130 [facility]um or plasma cholesterol in HDL measurement (mass/volume)2020-08-22 04:21:00* Test Item Value Reference Range Interpretation Comments HDL Cholesterol (test code = 2085-9) 67 40-60 [facility]ale[facility]um or plasma total cholesterol/cholesterol in HDL mass gqqof1949-29-14 04:21:00* Test Item Value Reference Range Interpretation Comments Cholesterol/HDL Ratio (test code = 9830-1) 2.9 3.0-3.6 [facility]ale[facility]um or plasma creatine kinase measurement (enzymatic activity/volume)2020-08-22 04:21:00* Test Item Value Reference Range Interpretation Comments Creatine Kinase (test code = 2157-6) 33 29-168 [facility]ale[facility]um or plasma creatine kinase MB measurement (mass/volume)2020-08-22 04:21:00* Test Item Value Reference Range Interpretation Comments Creatine Kinase MB (test code = 91286-6) 0.50 0-5.0 [facility] HospitalTroponin I measurement by highly sensitive enzyme hkhvysxnjgw0172-13-32 04:21:00* Test Item Value Reference Range Interpretation Comments Troponin I (test code = 75401-1) 0.016 0-0.300 [facility]um or plasma thyrotropin measurement by detection limit <= 0.005 miu/l (units/volume)2020-08-22 04:21:00* Test Item Value Reference Range Interpretation Comments Thyroid Stimulating Hormone (TSH) (test code = 93184-7) 1.491 0.350-4.940 [facility] HospitalCT ABDOMEN/PELVIS O6697-72-13 16:47:00 [facility] [address] [place] [address] Patient Name: JOSE RAMON MARCUS MR #: [id number] : 1965 Age/Sex: 55/F Req #: [id number] Adm Physician: GORDON RUGGIERO MD Ordered by: ZACH FITCH DO Report #: [id number] Location: [facility] Room/Bed: [place] [address] Procedure: [id number] CT/CT A BDOMEN/PELVIS W Exam Date: 08/21/20 Exam Time: 1600 REPORT STATUS: Signed EXAM: CT A bdomen and Pelvis WITH contrast INDICATION: Elevated liver function tests. COMPARISON: None. TECHNIQUE: Abdomen and pelvis were scanned utilizing a mult 4C Insightstector helical scanner from the lung base to [...] ZACH FITCH DO CHEST SINGLE (PORTABLE)2020-08-21 12:27:00 [place] [address] Patient Name: JOSE RAMON MARCUS MR #: [id number] : 1965 Age/Sex: 55/F Req #: [id number] Adm Physician: Ordered by: ZACH FITCH DO Report #: [id number] Location: ER Room/Bed: Procedure: [id number] DX/CHES T SINGLE (PORTABLE) Exam Date: 08/21/20 [...] 08/21/201226 COPY TO: ZACH FITCH DO BNP Vmz-vDwi4519-04-22 11:20:00* Test Item Value Reference Range Interpretation Comments B-Type Natriuretic Peptide (test code = 67341-4) 30.1 0-100 [facility] or plasma lipase measurement (enzymatic activity/volume)2020-08-21 11:20:00* Test Item Value Reference Range Interpretation Comments Lipase (test code = 3040-3) 18 8-78 [facility] HospitalNovel Coronavirus 2019 [id number] 21:45:00* Test Item Value Reference Range Interpretation Comments Novel Coronavirus 2019 nCoV (test code = COVID19) Negative Nega tive Performed by: [facility] [address] [place], [place] [address] CLIA#: [id number] Does patient have the clinical criteria consistent with COVID-19? YIs the patien t going to be discharged home? YTissue Xxmk2371-49-59 20:17:00* Test Item Value Reference Range Interpretation Comments Case Report (test code = 104) Surgical Pathology Repor t Case: [id number] Authorizing Provider: Samira Rivera MD Collected: 02/08/2020 0954 Ordering Location: [facility] Endoscopy Received: 02/08/2020 1141 Services Pathologist: Flaco Paris MD Specimens: A) - Biopsy, Gastric, RANDOM BX B) - Biopsy, Gastroesophageal Junction, BX EVALUATE FOR HUMPHREY'S DIAGNOSIS (test code = 3220) r2bdjSLxXBXwi2erBXLmoHKyQnGoDuCmVaAdUdjcjRToDDvefcChKQsvw5EhK5ImCwRiXLsfcfDiFELj PiutuzoeNYVbZKH8vjUdVHHsTBqxUXPpJLcpMs0trJXxvYjgPfXaKSWah8zvqgAOccnupLy2j7jhTOEm YiD9aRIsOMiiK3mwcaXofSPnVOOvXGw5wV96JGKhaP 6cmRAtLXieyiJhQUgbtoHxxwWzZas9LWIfK9gxRDSkVQGiL7NnLT6xVWNhFiw4BJK9CQZ7aWbfm5Z6uK IlrLJkvAjrSlQqHtGfGYTQv0NyEJc2pBstS9KiMFFsDfC8yQHjOOZeBLbqHVMcNXZrxsE5bS86DGwbxj R6eDKji2Dci26io817wI8ivFBgPKG7DRDbJSWpmCPf PEHkAGU9VLGohZZiL9g4TjVslVUtB5B9ByBvuVJlD0U5IfDrbRVbR4W0SvYszKObLBKgwXOzHe3fiLQv tNZyaj3grw18USN6p4GkaGlhMFT1WGF6GuReQx7lgMGlZAVyAF1pGqGfwVEhGBSjuo15dElkIGvjsnXs eF1xYyBvVR9qiFfme70vXVHkYJ8cxE4bhp1qgoIkRS rliLXfcMA4djcuWOT7DVTmgvVhe9Ggx2vxMeHdukRyX3ihD4MsJYHjQZFuAJLtXdFxxnJll7Gxk9VwkF XblNf0g2ekSSPvZQRbxCgej3tyHJN0SEQyJ9H7wISqg3xePOrvQOAlaNG1sczyOSpvJGMkvnW6tmtuCE jhJXOltUP8kearLNviTRHgFkU7rnqqQWxbBYQfRNE7 IRetv523ACX9GQixOljpMZdoSKAgqtLjsfRwuLioUWKfDRGgJQlxOBVpZJuwVZUdHQNwFzMieDVsIEbo a1HnwfUliBrvFUDoNZb1nwPcgdsaePt4uYZukVmpOANylJxdjV5xKfOdAeBgPZnydWIooyriLRsegiHk IEEuIFxwbGFpblxmMVxmczIwXGxhbmcxMDMzXGhpY2 kmUwHdEPVjzZchKCkcj5SsYIRbUXBeAPuubkDgLFt3isUwYPNMA33DM4dyONwtdETukqiqLLqvsgJvEV XCPrCLSKZrtUmixD6mSuLmHxZePRirVC9aBLXtY5pesVVwFDUxINImG4smZzEvqC8fkVxeWSxsHcWdXi BgNJwbjREsbPZVNN8DV3yipVJpwfbgBXlehfKlEVxL Q2jrtFGzrzexWMfqcsGxGTqhcmkoAKZmNGjfI4tkMjReTWMgcNopMHxwm0NqYXCrZGFbFBtjsuZcPIf4 bzJmWVzajQOyDSAfQGxfTBLdCKQyFaIsIShnpVFtjpgmJRwlquIxDLicxfkdGULxSObmH7pzBbGyVNNf wTdnTZluq6EpUOKyHAExLFjduhIgXRy4ueMxZY9yyP cjoB8wFcRiWlUpAMEgEYSoFQkvOMMdKTHlAjAyeFCmDsHcChQrqChcqRluRActTaVkAAZnFLksS2vpHv BpA2WpZYZaWkVdhOXrD6duVGUQCIIRWEQLDUCFE1ZmV2jNFKMZGBKWQKmTOSWLQZHQGv8GKPDPFOLQCe GpAGjOIXDMQLOKBisARSuHFXYHDASWSHsYL1UROAJI B5phoOLqappuUPqchkSaYMVdsdOuXWYaT4fTZwDIYyROMBXQN2QtC6tXHVSWIqSRYJzHZBEFM5AYRNCN AQQYEz8LJQmZVRQVLh0PMDRLLYINIYXjlgGpSMUaUTfbGKSpKZZkHoYkdYUiDjMqAhZokWrcnUbfARma NgUmRDQuLLahU0kdAhQcF5CyJYMjTbMrlDOzK2kwNN xetRAanmkdGBfygwFtJFRrdFfhoF3pYbRqLsWrNJziWA0gBVEvD3neyIUlWQSpYBKkP9fcNpDnvN6tkK pjWEksKyRxVrNbHMvulFKohADmNdVAWASIQyMeOo0NMTkDGAbMM2TDH7UEPxHNLYcUVkhfG0CNKZ0XJ8 5EAWGJPMkLNtJCGW3lH5TTDeUUNZABGEnZZQKkolkb GGEiBUBdmEGoRMV1rNDljrAexMpwnFkzuY6mJcEoZbTpPRgdbJJgnfmoCUsfncFjGGVykYhtwE3xXzGq VqVwHZuqEV0hGMGaU2vzkWShALQgDBErP9knUwLbpN2tpTywJXbmVwUuLxOrKNmhcDDzcGOhVICbRWzf XGYxXGZzMjAgIFxwbGFpblxmMVxmczIwXGxhbmcxMD RaLGceS0hwRwSxJVOpgCnsUTihr9UfFZJkCDRaMBfftjQyQFb8qyBvKDKRVNrLFTzXFUDHZ0BwWB4NIV ZXWY9DRMUCETNAUCtGM4rFMYLUCLGUHVHWONOlOE4VQIqWBeUCM1hzrXqvtL5bDjPfNaMcXJknUBUagQ ZaXBPdYCaRK2DDC7WLD4QYCIfRXRgtOyAMK3ZJX22e KVYJY7LUHEdplNReQGZoqtHde0NgFYJlFMG7WDjrYVkpyACgIAFwfLiwu0gxV0KlpRFzRLIrXBbeBQOk FQBjGnQenThdqA4mAvRmZsPoEKqlUD9xUFHxZ8frhFQzVTSrMNJeM3qqMiBqpG5znKkgFWtyBnKnHdPu SGfiqREcsUBlZBBfkElmhH2tRnXoXmWyRXEwANWrKL toDSZkYWWnAvWctHCjTiEfVqVifVkedMzlBHgoQyKjKOBoSHtcY9pbCfFsD0IuMVXzBsUjrPWuZ9udVx BML5XXL26OZHJHAXVKO7KeO3aSSDAgfGidgH3vRzXpAwCwPNJGODEWXImcMKSAQLaAF0cEZNZgvDJgFY GmLZCYMVgMXVoAKKGTT9RkLDIqFIxkSYSfZTDeYtTw bJWrQmPzDvHdhPtscFicDYekCpMhRDTtVDjmY3mmPoQxO0LnWTCbKaPcjVNiM3ilWB6VBCWRCN1HQGJB MHJQYPoOO1xCLXGmBLwqELKuEYJaCyIqGiJclUgecX1pEsDtHbEpXZyuEX2wWVXhP9ccfSXsPHHvXOHw C8eaSsBgiA8eiEwgREcuPsByYjNmAQfvqXPyyPAXCU IVADVOK2NwBIRKOCdTL4WYGNLudhpuIIJbOGRpvNRjKHY4iQNibdQgxFeqrYjavC6sByQhQsAhOWvjyR ZoseccANmgqzQaZBSlcKrliA4tYpIfMmNuAUzbGM7eOWAnB7uoxKIbGDIkWGZrY7vhAqUfaP0pcCloKZ xjZjFcZnMyMFxsdHJjaCAtIFxwbGFpblxmMVxmczIw SDLibAkkwX6mWzMnNuHnZKvvCZ1bSSTxB6buoENdFABjLHFlP3agCwMseH6isMjvMUfeSdVkSfWtCTxm xIPvbIRTYQpKBOePSQJYI0TzNZjWGOkGY2xCIwCTCZtGE32JOkNMBNLcEJjhIJMlEYBbAkKmrOToHUCh cjukYRY4g2ntyJBnUZVelWDrPSEgYZrgqqYzCQFhEo bepbckKKDkKWY4jmPrJDIvEArlSWDcCLqsVe9cgSKkyEbvLrCfAJQoe3jnaeDErdlflEx3m4pvIJKcUm F2uRFzOTxoP2agnaUoyVAxBLCsCFg5jQ45EXBpjB2arUUsDZenygQgEbN4IGmiINPcIzN5WXPpqDPbCY CyF8khEUQkMTbxOEWgADswfFInHMR9rJkkn5E7nPZp nCLqlUryEzQyLdCoXpOLe1YcNBj3bTanJ1YnPNYlObL3sFSsTCSiVHzvHCNdTPOlqeU6qM57MXtuuxS4 dXOna3Sxy41hk356jR9apZIbMYS3NMOuRHJhgNMsQRDqNKW6PUEvgEBjW7cwTTNxUF2rdqasVZpxTKvg TPCadDT2JCUyjRYcA5GwBSQeGTltTRKkten7LhViZl 2cnOQaiCgeHEmib6nok5lodMIvOpf8JRLzNsGfWeswNHbdk9Sea5gmACCklk7xIVX6yGXktYjjg8E7nL JdGBQrzBVqCIAvVZ0eaUGxBDZfeV5tpzcxFOPsEgIfhaukUJJzpCfuueDsCu1yaSvwTPU6SDxgN9peuZ 4nTkX5BXhkT9uisN2dYMr4YAhpJNHnlFY9ijL9JMTq lODkS0XixP6zXHEuFJ0dcrh9y9vpRCX6FXtlCQGhRjF9ssB6LJNlbAVbEUDaiJjiMXftl406BXH0GcKf IBDfs6UzJ0WavEchH50pqFovS78hQMBecUhgsW9zuRgqaG9gLjThHhUtTEaadLdvWZ8cUBZxO1caqOVx MQYeYXRtG4hcRcWbhY1cpTdfZAdrxeMfNPUcPqb3MQ VaxKPhEZGyCbs7IFZdHHYcZ62paexxNPF2lO6ji3ubd2AtLSyjZMP2VHGbo41vCHdoylV1RIxcCg6vNe FtJQC5NLfnXZX0uV== COMMENT (test code = 3359) c6pviDMvATNghNIhBgTxCABqJQXbf5vqANNhjYCxBkRzUaLrWqLbAuqstMPeCINxVxCyn7byl234iGJa h5saLTVbHyT3xUTiUCLrwDRnN509c0zfm4fzwrHocCC9XSLjCFC6QIchonBsypQ2NMqztKBkBgL6WHec guOkEQznwgXcqsOuQzq1SDPlT282QWU9cLoym3ygHC G8GGKmIXIoQwScLr4lqPVbH491JSJwZQOYWEHqhQa6UJUpqeZsrcKrzYBRu017J626r4rtSYKfrkOroO gRipzds3mbA370DAIzbNWphgAbEkToPZHvtDMqzMW5FNMePV7dleewMvJxIG6yqbxhCyQuVY8ycsp5Cv LpLV6khatxNaEwIPnlIQZnxnanAEMsp7UwhmcgGP1m N8Nim5X0gF6toHWsSDNhoDGlCwOmBVAnol8wpPSdJEtdo9IcQAT1ctS4rNVsxNBhXQBgOI98Ouzrj5Vj YsjrHFK9QLBzqcLfq1Aez0taOxKtmyCwT3baO9HgXRSmSLZbVLGzGxCohmXjd2Dbb1QaiQNlgHi3h8qa JAByYEFxpEsod8gyEON4EXFzT3L5kFYsj9zxEVwuRR XpdPG9unbfMLpwEQAqxuQ3ckfwEBhyAJBizSX1plopYCklPAQmStU4oiiqPCpvTLMzYVA7UDvdc604IP C5SAeqUacfBSydISAehaMjqhXcgLotJHSbQYYgGWuxSYRqZNmxMPAxKMThWnVgnIjjwBcqhT0nTtXaKf EeZMczZL8gKUBrE7txwYVsQEVzKXMkO6loYjNcyT9e lRxdSNtmsnHaHSi2BjJ4QUOtjTShXAk7CdFoFKKvtb7= CPT Code(s) (test code = 3357) s8yzvGXpTBQzjFRnNmYoSPZgADNbt2zoRGCbsMYcFaBrClDnBnZdZddxxTBxBXZwOmZti9had467hQZt u3frYKSoQsA5kEJwGFXgjFZwA316v3yez1xjelMdeMQ3APVoBFY3GMohxhAzgiB8ATgboRLeCpL2JOgq ixNkFCtmteQaldDfFfk8FAVrI783DMG9pTsev2ocEH N8PLBaCZPpHpZhXb3qxAGjK460CYStTGBYZCGayTj1HRTmkoZgzmMbpCZLq007J096t8ehYKDgyxXpcZ pFiscrh6nwM252ROPdoJBasoBkUlXbTXLagKNrfYQ5BPHeTH1vtxrcGeGoIE8qquacGeQoBT9fdwm9Bl IbVV3mzgorAhSyXRadMBNjewagFOQwo0AjbpisZJ6x W3Lwp3A1sU9wkJZnYAKrjMQqYaKqBZQtsl7wmGMvNIkwe8GtUII2uxN3qNRwxEIdQEPqTH76Oalom9Ek FhaeAWA6VSTqjqHcv9Xks0ydDyUspuOlL4kqW6LqZCNzTAApHZBnVhDdhdCgy5Pay5HcxTTcpZs0m5tq NHCuVXZncXiyo8qfOXM2IBXnD9W0cHZol1npYSdiZU QgbAM6bilxVSigGYGhdhZ1xgraCHfvPDUooAG9ofjuRDvnYZGlSiV9wbfpWHcsUGUnEWR4WYwos825QJ M0DEwpRwzmDNugHZDkqfAqhhOtgGzfHIByHRWiURnpVRMpOVdfFWJzAAFgQcOjkHxlaPrteV7ySnIxRd ZkUCsvQF8zNXVjA6raxZJbKYZbNUYcM8xhKcImqJ8d nVvpVPvkwjTwHYw9FlH8HRDbtRVkWJu2IrWjPDMeye0= CLINICAL HISTORY (test code = 3356) u1kowASrBMYdfQVqHcLyYTOlMGYfd2qcBQZxxPDzZzMrWlXhBnPfZdmsfVGjYCLuMqVfm7ddg263cMGc w1tmOVHnTzF1nRPcRNUmnLWnZ090JUXmROysb7fjp4RpYCChaZFjv4B6UXNThjqzsYf0fLikP14qk4R2 WjpaR4voQQIdRFvdUZKwUFogaWToPFF2BBHzQOC9CF stmtVgzuS9OPdoiGLyZjW8XWs4p7skaDvjDMPoDRR8a8yzEQwtssPeEO3sth0msCm0d2amynVmFUXdBE UcqELVRKXfT9PovCwnAu6woLx7bMclJmyoWXT6Hwk5DT3yus13qjw4vKlgFFIriuloAbG3ODweZHKwwq cuCUd6QGosKWOpqAmeHFmuXNSptsndFRquKXIcrGap ARimMCRqGviuQZxnCZTnMHC8SYuyz049FNB3WQopf4ost9nftAOiNub2NACqBhUfUtvySEywl8Jmy2ew RDHjzb9sBOV5uWNkdHizc2U4qFKrHFPkbSSexnHuDOTiYfZ2MYfrCN4qzm53XBAkLZM4va4epXDzeWss szRkoNDoCNrfI7GjSFHnf485HMIcO2ItSOEvt1S0gu LdAxVcFGNmiYU6kiP8BOVqPLq0yQWcrtP7jjGrrDZcQ4mlsS84AfYmxVVhO4QzeE35JsDwaFOxF6LurN 75AeYkvGCuM8HteP20YvGdmZNcFVIckCYtHb1fqYSwyERvz9JdcMWuAHdvJ81xh971WSRpkbXrO3eulY FpblxwbGFpblxmMFxmczIwXHFsXHBsYWluXGYwXGZz NeAwcGridD2xFdLrKoVhQDDLkoDysPSteSSrtw4biUN5WFSKY5JhCK6aojglMe1vTHRudK5eSCWovqYg lw6rHQPaYKppTMRiYDXmNoQtH9KikKQmJDFrlYjuQ7WzxWDiBTNfqXbmWPbwWJPdWVjomMXankhqFKgg czIwICBccGFyfQ== SPECIMEN SOURCE (test code = 3377) y3lqdOWjNPMayBQrWrBfGFOlBYEvl6tyQUPgbBIwUhQkLsNmUdZoAnwdsBQbVNIkOwDnt7koz505gHFn u9zkMHQyAmK9sKLnSJXuhQRfL373DIAiQSczs0cjq6SgFDYphFPhp6S3RZSEqrmypSr7fFhaB71vf2Z1 DnlnC4mvEPJpTNvzMPJoKEigfWBuLSO1EYLrPVM9BO cbqkUiswQ2UQlzlXYbXwE0XMx4n3vepVizMQWnBMN0j2wkOBzeokKfMM0mcx7chXf5t2ithhGqHIMnQN RonHUWHLHzB3CedPszVb9tuNn7tYzhEshhEPV0Xap7TQ2ren42obj4kNokYWUssszmBbI3RRmvRULqmr oaXNd6NDmiNIImfXlhWYxmGMFrjvfzOLgbKRUmbGox KOqfMIMlKtplTAqoEPOmQPJ5PMwys464VII2RMbsl7mcw7bslHBoJci5HUNeGrYgOtyaBKvkz2Bxy6px WFYtno9hTTL7dWEnfOcou0O9nIQgNFHwxUBjihShBHIuBvE3EIzgAG5qub22EYMlWFT8rz8avPEruIfq snCjqWBgHVdlX4SeBOPbz253VAPiG0QgMFTuz5Y9rz IkHxRaVBMrlXZ6ieP8LBJbXHj9tTJimiN4ysWceOMwV1qwhP23VpMseOMqO1AsxZ43JdFyxOOlX0DfrV 51VgQjsZTsH6YixX68InBqaIGbGFUboTCwOq4ehOTeqVUnn3RwkEYeKDzmX62ao630PBYccoEeK3zvqY FpblxwbGFpblxmMFxmczIwXHFsXHBsYWluXGYwXGZz GtBcvVtquQ1dBvNtIrXfBHHOAqAFFG5lk17kU6XhtBAaKkJyhX9pt5l8RQHqBWnchQWgvcdaEQmtcnDc ODtdh3Nxr0Wks1IuTMzdJPflgmEtX6Sjf43wiMdbzS5kXzFlEbImDXDupcNeA9Hnv00cuRLzkH== GROSS DESCRIPTION (test code = 3366) t7bmxYEvZXGhiDTwZoVlZLDtAJAtx8cfCXBznOVuFyCeDaGsBdEaSpobuGIhYBTfTzMip5xrw770mGZe w3aiUIPvHsH4vINhRCJhwCQhF136PKOrZRbyl6wwc9OdBKCmjXCcy9D5DWZXmddvnLq4wPqeK44hf2R0 YqgwD9inXOZyGIzqLAGzDUmadBHmYZY7ZUDfPZQ9TE mtrnXnocJ9JPpcjHMeBoL7SEg0k3tphPxzGOGePEJ8i1vpIIuuseQsEA8jtf9rfLg8h8njasNpAMGoNW YaqVNDBZKuF6VnlLmgSz0phVx4rGtrQejfETE9Pvv4EE7wrb17lqe9oVgfGEPrlqelYpP0SJqwUWCzcc xhENx4FDrqUDLrlObhUKzbKERkofaaUMglCBLniZzw JLbqPFTnYmptSGlyZSWsGDH5TAedg440WWG0VEycg7hfk9wkoMSaYxc6GRNxIrUaBkcqDYrqi7Nxp5xq LNUmnx8cRVK1vHTthLnwp3V9uUWyPPJzwLHrfkLbSRKuTqH2XQezAY6cne21KTKyNOX5mx9kfBJojHxk nuLbdDRkIGgoD9OfZVGft084LYFyX6DxMXUqv9B5jv OnIgDfLTMblDO4qzN0PAPbLCr0fNByfoD6jyDhxNMzI9jpnC46NuHobIKyU5IugF38OnJhqITyN2MncY 09GqLbwSQbX8FnaQ02UrDraQKbMGRctJLiPg8mgSOvaQGae3DlrERdPGxiL38ro777QXBfocEmH8zzcY FpblxwbGFpblxmMFxmczIwXHFsXHBsYWluXGYwXGZz AvMgtXovqJ3jBsDrPhRkUJFICvVcrAbayU7aElDwXaZaGYIORABmvHZnEAIhupIss0SoCXjzwqIaFXVd qBCvLDPlMS3xz11lZ0OiyDRrGaEkrC5zj7ssTMjeBMQrTV10JZosSK45PNyqJP5eVEMdGDNrO4WcV5X9 LMFgYcK7QN6qsTtbu9ObZXNgULjpWH95RBJ1Al6fwD BxLNUbwwYkyuJpkWIfifXoPVGaxtrcKEWtUHEmLDS6OSPLBI4cGMFxicakCPTyDl2gRtUgOId4LMBmcA 9cHo8uzLRtfD0xtPTeXQhfZUSjO8UwfARdJCOoeZjrD3KyjRMxzK7ehKwwaiPbyY3ig8einB3wBEAxcQ AoxDRtNo2oTBViglHpiEImdrLyJNSdHPZ5ufAoasGz eKZkzLDet8JvaKKcYWlemJXtGZZlf2M5PDibRI3bDNkqCN8aVSevYY7bCEZsJLshXIEyA8RcW6O2INck p1DxlVb6dRVeJQXzsVzfLKd4SIumFFIif9uiL0llKELsc2JcpUEeSUAyTMW3YVJiPbxdpSWurAcqyx2s WTvSK9TvILRbAIkmMCSnLXRbOoJloXIbpR== MICROSCOPIC DESCRIPTION (test code = 3371) s6nahBXuZEUsmJGqSoMdZTXhEFMij1ybLUVayEZeYkAcXnGeLsMqXjdoaFBiHXDzVbKul9xyt109yEEe x4akUBHtFeF3yGAoFQBbuKCwA784FBBqYKvqx0gag1YxIHJumPAye1I9CSOIrqujlGa7kZdvT61aj2J9 XvjgT8uaBXVtHBkyHEPlVYezgFTrMXN2GKWkHFF9IY cscqXfrdF2PBgvsVBxQjM4BSc8r8fzvZgjUIOiNHD7p8qmTAadjoPsMT7vga1vxNy2m5iclsCrNDXkMG TukRUPNGCsS0HzzWoxEq1waGh1tAhjLzpeLCS2Udv4BT3vdz33imn7bPqyBVHnulhcIpP6PPtdXJTini taXLc9GPqgOARijIjtSHgcQZOgvwmqRPcuDZBjaQhd ZPehIKLdEmzfOZuqJLSrOBX9YZfch999ELU9BHvpi4zdz8upqRFbOqd3ZXIqRjIzXetkGPmpj2Mvd0af JJQxmm6kGDZ6dFSqrMzjn2A0oPDaHCYguTWnxtBdOZTdck29aFBufVScrDYbdh4azxFcqKIzpQJhCMI4 kBFfmdVoVPUvtSIpGWIlXR7zrZMoBZGmoE6zgaikQC KtTcBpbzwwRPDruEzndeKpLm7wzAbmLPK0FBepA1zklM3bSfA0CEizC8oroQ4yPHy1LPgskMJ2MLUmuR 4lGA7lxxqkc7itXuPjWV1hrabkk4rqDhSdNW2yefn1m2xfTsNaTP6csnair6tyQiCsNSyhKKAyowmzFC Ztb5WdjvguEVEan2OuO7OtaAwpE83bnShnO59fMJXq eZtaqT2cdVrhnU1cYgNrJmNfLAdzqUtacCUhmgeaJBrigrUwBALgSCoyWCOjUDXiBpAjASMgLd8osGPd LlxwYXJccGFyfQ== SPECIAL STUDIES (test code = 3376) [file] UrnHZyVaSgMtIkiNilvZokJokdVyDxBXIvYPyxZ3mgPvGsSsWlNuyzCSM5aH== [facility] [id number] 20:17:00Surgical Pathology Report Case: [id number] Authorizing Provider: Samira Rivera MD Collected: 02/08/2020 0954 Ordering Location: [facility] Endoscopy Received: 02/08/2020 1141 Services [...] MALIGNANCY Signing Pathologist Direct Nuria ne Line: [phone] signed by Flaco Paris MD on 020 at 8:17 [id number] diagnosis: Screening for colon can cer. Gastroesophageal [...] Immunohistochemistry technical grey ting was performed at [facility], Pathology Laboratory whe re it was [...]
== END 2020-08-22 11:05 | disposition home or self-care (01) ==
LOC: ER 11:14 → ERHOLD 14:03 → MED/SURG2 20:22
PROVIDERS: ADMIT Internal Medicine; ATTEND Internal Medicine
DX: R07.9 Chest pain, unspecified (principal); I10 Essential (primary) hypertension; K21.9 Gastro-esophageal reflux disease without esophagitis; Z11.59 Encounter for screening for other viral diseases; K29.70 Gastritis, unspecified, without bleeding; K44.9 Diaphragmatic hernia without obstruction or gangrene; E88.89 Other specified metabolic disorders
CPT/HCPCS: 36415 ×2; 71045; 74177; 80053 ×2; 80061; 82550 ×2; 82553 ×2; 83036; 83690; 83880; 84443; 84484 ×2; 85025 ×2; 93005; 93306; 99284; G0378 ×2; Q9967; S0164; U0002